=== PATIENT | female | born 1980 | race Caucasian/White ===

== ENCOUNTER 2020-05-19 09:25 | Outpatient (CLI) | payer SELFPAY ==
--- NOTE | 2020-05-19 09:35 | US_ITS ---
WS: [id number] TRANSABDOMINAL PELVIC AND TRANSVAGINAL PELVIC ULTRASOUND HISTORY: PELVIC PAIN COMPARISON: None available. Uterus: 7.4 cm x 4.2 cm x 3.5 cm. Normal size anteverted uterus. No mass. Endometrium: 0.8 cm. Normal homogeneity. No mass or increased vascularity. Right ovary: 2.1 cm x 1.8 cm x 1.6 cm. Normal size RIGHT ovary with small follicles. Normal vasculari ty. Left ovary: 2.8 cm x 1.4 cm x 3.0 cm. Normal size ovary with normal vascularity. Small complex nabothian cysts. US/US pelvic with transvaginal IMPRESSION: Essentially normal pelvic ultrasound.
== END 2020-05-19 09:26 | disposition home or self-care (01) ==
LOC: RAD 09:32
PROVIDERS: PCP Nurse Practitioner Family; Visit Provider Nurse Practitioner Family
DX: R10.2 Pelvic and perineal pain (principal)
CPT/HCPCS: 76830; 76856

== ENCOUNTER 2020-07-08 23:16 | Inpatient (IN) | payer MEDICAID, SELFPAY ==
[2020-07-08 23:24] VITALS: BP 161/112; PULSE 110; RESP 18; TEMP 36.7; O2SAT 96; BMI 34.0
--- NOTE | 2020-07-08 23:55 | ED_ITS ---
HPI - Psych General: Chief Complaint: Psychiatric Symptoms Stated Complaint: anxiety Time Seen by Provider: 07/08/20 23:31 History of Present Illness: HPI Narrative: Patient is a 39-year-old female who comes to the ED with SI. Patient's brother is with her currently and is the one who encouraged her to come to the ED to get help. Patient says she has been anxious and stressed over the past couple days. She says she has not been sleeping well and admits to having some thoughts of SI. Patient is very quiet and very slow to answer any my questions. She keeps telling me that she thinks if she gets some sleep she will be better. Patient says she has been taking citalopram for the past couple days, but that the only med she has been on. She admits to marijuana use but denies any other drug use. Brothers said that patient has made comments of threatening suicide multiple times over the past 3 days. Patient has been acting emotionally detached and he is concerned about her mental health. Today he found a handgun in patient's purse which made him even more concerned for her safety. He also says patient has been acting paranoid and saying that her boyfriend is been poisoning her. Feels that she has been saying things that do not make sense at times as well. Brother also told me that her brother committed suicide many years ago and it has had a big effect on patient. Brother is filling out a affidavit and to make sure patient goes into psych unit for evaluation to get help. Associated symptoms: Reports suicidal ideation; Deny auditory hallucinations or visual hallucinations Review of Systems Const: Denies: fever(s), chills or fatigue Eyes: Denies: change in vision or eye discomfort ENMT: Denies: throat pain, odynophagia, nasal discharge or nasal congestion Card: Denies: chest pain, palpitations, edema, swelling of feet/ankles, dyspnea on exertion or orthopnea Resp: Denies: dyspnea, productive cough or non-productive cough GI: Denies: abdominal pain, nausea, vomiting, diarrhea, constipation or hematochezia : Denies: flank pain, dysuria or hematuria Musc: Denies: neck pain, back pain or extremity swelling Skin/Breast: Denies: rash or new lesions Neuro: Denies: headache(s), numbness in extremities or weakness in extremities Psych: Reports: anxiety, sleeping less, paranoia, difficulty concentrating and suicidal ideation; Denies: visual hallucinations or auditory hallucinations Physical Exam Const: COMMON NORMALS: no acute distress, patient oriented x3 and alert GENERAL APPEARANCE: comfortable HENMT: COMMON NORMALS: normocephalic HEAD & SCALP: normocephalic MOUTH: Normal oral and palatal mucosa present THROAT: posterior oropharynx normal and uvula midline Neck/C-Spine: COMMON NORMALS: supple GENERAL: Yes normal visual inspection Resp: COMMON NORMALS: normal respiratory effort, No retractions, No use of accessory muscles and clear to auscultation bilaterally AUSCULTATION: clear to auscultation bilaterally Cardio: COMMON NORMALS: regular rate, regular rhythm, S1 normal heart sound present, S2 normal heart sound present, No gallops present (Cardio), No clicks present (Cardio), No murmurs present (Cardio) and Peripheral pulses 2+ throughout RATE: regular rate RHYTHM: regular rhythm HEART SOUNDS: S1 normal heart sound present and S2 normal heart sound present PERIPHERAL PULSES: Peripheral pulses 2+ throughout GI: COMMON NORMALS: Normal to inspection, nondistended, normoactive bowel sounds present, Soft to palpation, non-tender and no masses PALPATION: Yes Soft to palpation : COMMON NORMALS: Yes no CVA tenderness BLADDER/KIDNEY EXAM: Yes no CVA tenderness Back/Pelvis: COMMON NORMALS: no CVA tenderness Extremity: COMMON NORMALS: normal to inspection and no pedal edema Neuro: COMMON NORMALS: patient oriented x3 and moves all extremities SENSORIUM/ORIENTATION: Yes alert Psych: APPEARANCE: Yes grossly normal ATTITUDE: Yes Withdrawn affect present and Yes evasive ACTIVITY/MOTOR BEHAVIOR: Yes Avoids eye contact (attititude/behavior) SPEECH: Yes minimal, Yes slow and Yes soft MOOD & AFFECT: Yes Flat affect present THOUGHT CONTENT: Yes Suicidality present and No Hallucination(s) present ATTENTION/CONCENTRATION: Yes attention grossly intact and Yes concentration grossly intact MEMORY/COGNITION: Yes memory grossly intact and Yes cognition grossly intact INSIGHT: Limited insight present (Psych) JUDGEMENT: Limited judgement present (Psych) Skin: GENERAL SKIN EXAM: dry skin MDM - Psych MDM Narrative: Medical decision making narrative: Patient is a 39-year-old female comes to the ED with SI. Brother is with patient and is concerned about her mental health. He filled out an affidavit and patient was put on a 96-hour hold and all appropriate documentation was completed. I contacted Dr. Sandy and all about patient case and he accepted patient for admission into NPU. Lab Data: Attestation: I reviewed the patient's lab results. Labs: Lab Results 07/08/20 07/08/20 07/08/20 Range/Units 23:57 23:57 23:57 WBC 15.6 H (4.0-10.0) 10^3/ uL RBC 4.65 (4.1-5.3) 10^6/u L Hgb 15.0 (11.5-15.3) g/dL Hct 44.5 (37.0-47.0) % MCV 95.7 (81-99) fL MCH 32.3 (28.0-34.0) pg MCHC 33.7 (30.0-36.0) g/dL RDW 11.9 L (12.1-15.1) % Plt Count 379 (130-400) 10^3/c mm MPV 10.2 (7.4-10.4) fL Neut % (Auto) 68.7 % Lymph % (Auto) 23.1 % [place] % (Auto) 6.7 % Eos % (Auto) 0.9 % Baso % (Auto) 0.3 % Neut # (Auto) 10.68 H (1.8-7.7) 10^3/u L Lymph # (Auto) 3.6 (0.8-4.8) 10^3/u L [place] # (Auto) 1.0 H (0.2-0.9) 10^3/u L Eos # (Auto) 0.1 (0.0-0.8) 10^3/u L Baso # (Auto) 0.1 (0.0-0.1) 10^3/u L Nucleated RBC % (a uto) 0 % Nucleated RBCs # 0.0 /100WBC Sodium 138 (136-145) mmol/L Potassium 3.2 L (3.5-5.1) mmol/L Chloride 99 (98-107) mmol/L Carbon Dioxide 24 (22-29) mmol/L Anion Gap 18.2 (5-19) BUN 10 (6-20) mg/dL Creatinine 0.6 (0.5-0.9) mg/dL GFR Calculation 111.9 (90-130) mL/min Glucose 122 H (65-115) mg/dL Calculated Osmolal ity 286 (285-295) mOsm/k g Calcium 9.0 (8.5-10.5) mg/dL Total Bilirubin 0.2 (0.15-1.2) mg/dL AST 15 (0-32) U/L ALT 14 (0-33) U/L Alkaline Phosphata se 78 (35-105) IU/L Total Protein 7.2 (6.6-8.7) g/dL Albumin 4.3 (3.5-5.2) g/dL Globulin 2.9 (1.3-4.6) g/dL HCG, Qual Negative (Negative) Urine Color (Yellow) Urine Appearance (CLEAR) Urine pH (5-7) Ur Specific Gravit y (1.005-1.030) Urine Protein (Negative) Urine Glucose (UA) (Normal) Urine Ketones (Negative) Urine Blood (Negative) Urine Nitrate (Negative) Urine Bilirubin (Negative) Urine Urobilinogen (Negative) mg/dL Ur Leukocyte Mary Kay ase (Negative) Urine RBC (0-2) /hpf Urine WBC (0-5) /hpf Ur Squamous Epith Cells (0-5) /hpf Amorphous Sediment Urine Bacteria (NONE) /hpf Salicylates 1.0 L (3-10) mg/dL Urine Opiates Scre en (Negative) ng/mL Acetaminophen < 5.0 L (10-30) ug/mL Ur Barbiturates Sc reen (Negative) ng/mL Ur Phencyclidine S crn (Negative) ng/mL Ur Amphetamines Sc reen (Negative) ng/mL U Benzodiazepines Scrn (Negative) ng/mL Urine Cocaine Scre en (Negative) ng/mL U Marijuana (THC) Screen (Negative) ng/mL Ethyl Alcohol 11 H (0-10) mg/dL 07/09/20 07/09/20 Range/Units 00:07 00:07 WBC (4.0-10.0) 10^3/ uL RBC (4.1-5.3) 10^6/u L Hgb (11.5-15.3) g/dL Hct (37.0-47.0) % MCV (81-99) fL MCH (28.0-34.0) pg MCHC (30.0-36.0) g/dL RDW (12.1-15.1) % Plt Count (130-400) 10^3/c mm MPV (7.4-10.4) fL Neut % (Auto) % Lymph % (Auto) % [place] % (Auto) % Eos % (Auto) % Baso % (Auto) % Neut # (Auto) (1.8-7.7) 10^3/u L Lymph # (Auto) (0.8-4.8) 10^3/u L [place] # (Auto) (0.2-0.9) 10^3/u L Eos # (Auto) (0.0-0.8) 10^3/u L Baso # (Auto) (0.0-0.1) 10^3/u L Nucleated RBC % (a uto) % Nucleated RBCs # /100WBC Sodium (136-145) mmol/L Potassium (3.5-5.1) mmol/L Chloride (98-107) mmol/L Carbon Dioxide (22-29) mmol/L Anion Gap (5-19) BUN (6-20) mg/dL Creatinine (0.5-0.9) mg/dL GFR Calculation (90-130) mL/min Glucose (65-115) mg/dL Calculated Osmolal ity (285-295) mOsm/k g Calcium (8.5-10.5) mg/dL Total Bilirubin (0.15-1.2) mg/dL AST (0-32) U/L ALT (0-33) U/L Alkaline Phosphata se (35-105) IU/L Total Protein (6.6-8.7) g/dL Albumin (3.5-5.2) g/dL Globulin (1.3-4.6) g/dL HCG, Qual (Negative) Urine Color Yellow (Yellow) Urine Appearance Clear (CLEAR) Urine pH 5.0 (5-7) Ur Specific Gravit y 1.015 (1.005-1.030) Urine Protein Neg (Negative) Urine Glucose (UA) Norm (Normal) Urine Ketones 1+ H (Negative) Urine Blood 3+ H (Negative) Urine Nitrate Negative (Negative) Urine Bilirubin Neg (Negative) Urine Urobilinogen Norm (Negative) mg/dL Ur Leukocyte Mary Kay ase Negative (Negative) Urine RBC 15-25 H (0-2) /hpf Urine WBC 0-4 H (0-5) /hpf Ur Squamous Epith Cells 5-10 H (0-5) /hpf Amorphous Sediment Not Reportable Urine Bacteria Trace (NONE) /hpf Salicylates (3-10) mg/dL Urine Opiates Scre en Negative (Negative) ng/mL Acetaminophen (10-30) ug/mL Ur Barbiturates Sc reen Negative (Negative) ng/mL Ur Phencyclidine S crn Negative (Negative) ng/mL Ur Amphetamines Sc reen Negative (Negative) ng/mL U Benzodiazepines Scrn Negative (Negative) ng/mL Urine Cocaine Scre en Negative (Negative) ng/mL U Marijuana (THC) Screen Negative (Negative) ng/mL Ethyl Alcohol (0-10) mg/dL Coding Level of Care Code ED Shell Assembler for Chg Fwd Exam Comprehensive
[2020-07-09] MEDS: hyDROXYzine 25 mg Capsule 50 MG PO ×2 (00:12→21:26)
[2020-07-09 00:30] LABS: Alanine Aminotransferase 14 U/L (0-33); Albumin Level 4.3 g/dL (3.5-5.2); Alcohol Level 11 mg/dL (0-10); Alkaline Phosphatase 78 IU/L (35-105); Anion Gap 18.2 (5-19); Aspartate Amino Transferase 15 U/L (0-32); Blood Urea Nitrogen 10 mg/dL (6-20); Carbon Dioxide 24 mmol/L (22-29); Chloride 99 mmol/L (98-107); Globulin 2.9 g/dL (1.3-4.6); Glomerular Filtration Rate 111.9 mL/min (90-130); Glucose 122 mg/dL (65-115); Osmolality Calculated 286 mOsm/kg (285-295); Potassium 3.2 mmol/L (3.5-5.1); Sodium 138 mmol/L (136-145); Total Bilirubin 0.2 mg/dL (0.15-1.2); Total Protein 7.2 g/dL (6.6-8.7)
[2020-07-09 00:30] LABS: Bilirubin Urine Neg (Negative); Blood Urine 3+ (Negative); Glucose Urine UA Norm (Normal); Ketones Urine 1+ (Negative); Leukocyte Esterase Urine Negative (Negative); Nitrate Urine Negative (Negative); Protein Urine Neg (Negative); RBC Urine 15-25 /hpf (0-2); Specific Gravity, Urine 1.015 (1.005-1.030); Urine Appearance Clear (CLEAR); Urine Color Yellow (Yellow); Urobilinogen Urine Norm (Negative); WBC Urine 0-4 /hpf (0-5)
[2020-07-09 00:31] LABS: Add Urine Culture? No; Bacteria Urine TRACE /hpf
[2020-07-09 00:32] LABS: HCG, Serum Qual Negative (Negative)
[2020-07-09 00:33] LABS: Amphetamines Screen Urine Negative (Negative); Barbiturates Screen Urine Negative (Negative); Benzodiazepines Screen Urine Negative (Negative); Cocaine Screen Urine Negative (Negative); Opiate Screen Urine Negative (Negative); PCP Screen Urine Negative (Negative); THC Screen Urine Negative (Negative)
[2020-07-09 00:38] LABS: Acetaminophen < 5.0 ug/mL (10-30)
[2020-07-09 00:40] LABS: Basophils # 0.1 10^3/uL (0.0-0.1); Basophils % 0.3 %; Eosinophils # 0.1 10^3/uL (0.0-0.8); Eosinophils % 0.9 %; Hematocrit 44.5 % (37.0-47.0); Lymphocytes # 3.6 10^3/uL (0.8-4.8); Lymphocytes % 23.1 %; Mean Corpuscular HGB Conc 33.7 g/dL (30.0-36.0); Mean Corpuscular Hemoglobin 32.3 pg (28.0-34.0); Mean Corpuscular Volume 95.7 fL (81-99); Mean Platelet Volume 10.2 fL (7.4-10.4); Monocytes % 6.7 %; Neutrophils # 10.68 10^3/uL (1.8-7.7); Neutrophils % 68.7 %; Nucleated Red Blood Cells % 0 %; Platelet Count 379 10^3/cmm (130-400); Red Blood Count 4.65 10^6/uL (4.1-5.3); Red Cell Distribution Width 11.9 % (12.1-15.1); White Blood Count 15.6 10^3/uL (4.0-10.0)
[2020-07-09] MEDS: potassium chloride ER 20 mEq Tablet PO (00:52)
[2020-07-09 01:17] VITALS: BP 145/97; PULSE 96; RESP 17; TEMP 36.6; O2SAT 94
[2020-07-09 01:25] VITALS: BP 157/103; PULSE 99; O2SAT 97
[2020-07-09 06:00] VITALS: BP 148/86; PULSE 109; RESP 16; TEMP 36.5; O2SAT 93
--- NOTE | 2020-07-09 13:30 | PM.NHP ---
Providers/Chief Complaint Admitting Physician: Sena Sandy DO Chief Complaint: anxiety HPI NPU History of Present Illness Elizabeth Blair is a 39 year old female with unclear past psychiatric history although patient states that she had previously been treated for depression and anxiety presented at the insistence of her brother who reports erratic, labile mood and affect, sobbing and crying and concerned about her harming herself. Patient was placed on 96-hour hold by brother. Patient's brother reports that when he had reached for her purse that a gun and fell out. Patient has history of a sibling that had committed suicide. Patient continues to be sobbing and demonstrating erratic behavior and very difficult to redirect and interview. Patient is a difficult historian and wanders around the entire day room area going to the windows stating that she is looking for someone. Patient states that she feels paranoid and says that someone had told her that they were going after her family but does not state who. Patient does report feeling sad and depressed but unable to provide any details of duration or any other qualities of her depressed mood. She currently denies any suicidal ideation and states that she would not harm herself because of her teenage children. Patient denies any hallucinations although she continues to appear to be attending to internal stimuli throughout the interview. Patient does not participate in any other questions with regards to psychiatric review of systems. Review of Systems General: Reports: ROS unobtainable due to medical condition Meds NPU Home Medications Medication Instructions Recorded Confirmed Last Taken Type No Known Home Medications 07/09/20 07/09/20 Unknown History Allergies Allergy/AdvReac Type Severity Reaction Status Date / Time No Known Allergies Allergy Verified 07/09/20 04:24 [facility] N[facility] Other Psychiatric History: Other Psychiatric History: Unable to obtain at this time Mental Status Exam MSE Comments: Appears stated age, wearing hospital scrubs, constantly sobbing and crying throughout interview, wandering throughout the day room, some difficulty redirecting but sits for short periods of time providing brief responses to interview questions Psychomotor activity is restless per above, no agitation Speech, frequent pauses, normal volume, normal rate, not pressured I do not know what is going on, labile mood and affect Alert and oriented to person, type of place Memory and concentration are poor per interview Intellectual functioning appears to be average based on vocabulary, interview Thought process, circumstantial, no flight of ideas, no looseness of associations Thought content, perseverates about family and things going on outside of the windows, appears to be attending to internal stimuli throughout the interview, no suicidal or homicidal ideation Insight and judgment appear to be limited at this time Vitals/I&O/Wt Last Vital Signs Temp 97.7 F 07/09/20 06:00 Pulse 109 H 07/09/20 06:00 Resp 16 07/09/20 06:00 BP 148/86 07/09/20 06:00 Pulse Ox 93 07/09/20 06:00 Weight last 48 hrs Weight 81.647 kg Physical Exam Narrative: EXAM NARRATIVE: Emergency department physical examination was reviewed as part of this evaluation Data NPU : 07/08/20 23:57 07/08/20 23:57 A&P Assessment and plan (1) Psychotic disorder: Status: Acute Additional A&P Information Patient presents with erratic behavior, labile mood and affect, patient does report history of cannabis use but unclear frequency with negative UDS at time of presentation. Unclear if this represents mood disorder versus thought disorder or substance-induced psychotic disorder. Ongoing concerns about safety. INVOLUNTARY ADMIT to inpatient psychiatry Repeat CBC, CMP TSH START Zyprexa Zydis 5 mg twice daily targeting psychotic symptoms Continue to monitor Continue to provide behavioral redirection and support Involuntary Hold Information 96 Hour Hold: 96 Hour Involuntary Admission: Yes 96 Hour Hold Ending Date: 07/15/20 96 Hour Hold Ending Time: 00:42 Attestations NPU Medical Necessity Statement*: Patient requires psychiatric hospitalization for medication stabilization as well as observation for any return of suicidal ideation Anticipate hospital stay to exceed 2 midnights Time Spent in Patient Care: Greater than 35 minutes (>than 50% of time spent in counselling and/or direct pt care on unit). Coding Level of Care Code Acute Labor Representative for Milli Macdonald Diagnoses Psychotic disorder F29
[2020-07-09] MEDS: OLANZapine 5 mg ODT PO (13:31)
[2020-07-09 14:00] VITALS: BP 122/83; PULSE 116; RESP 18; TEMP 36.9; O2SAT 97
[2020-07-09 14:41] LABS: Basophils % 0.3 %; Eosinophils # 0.1 10^3/uL (0.0-0.8); Eosinophils % 1.1 %; Hemoglobin 15.2 g/dL (11.5-15.3); Lymphocytes # 2.6 10^3/uL (0.8-4.8); Lymphocytes % 22.6 %; Mean Corpuscular Volume 96.8 fL (81-99); Mean Platelet Volume 9.6 fL (7.4-10.4); Monocytes # 0.7 10^3/uL (0.2-0.9); Monocytes % 6.4 %; Neutrophils % 69.3 %; Nucleated Red Blood Cells % 0 %; Platelet Count 378 10^3/cmm (130-400); Red Blood Count 4.75 10^6/uL (4.1-5.3); Red Cell Distribution Width 11.8 % (12.1-15.1); White Blood Count 11.4 10^3/uL (4.0-10.0)
[2020-07-09] MEDS: nicotine 14 mg Patch 1 PATCH TRANSDERMA (15:06)
[2020-07-09 15:12] LABS: Alanine Aminotransferase 15 U/L (0-33); Albumin Level 4.2 g/dL (3.5-5.2); Alkaline Phosphatase 75 IU/L (35-105); Anion Gap 15.8 (5-19); Aspartate Amino Transferase 14 U/L (0-32); Blood Urea Nitrogen 8 mg/dL (6-20); Calcium 9.8 mg/dL (8.5-10.5); Carbon Dioxide 24 mmol/L (22-29); Chloride 103 mmol/L (98-107); Globulin 2.9 g/dL (1.3-4.6); Glomerular Filtration Rate 111.9 mL/min (90-130); Glucose 107 mg/dL (65-115); Osmolality Calculated 287 mOsm/kg (285-295); Potassium 3.8 mmol/L (3.5-5.1); Sodium 139 mmol/L (136-145); Thyroid Stimulating Hormone 1.12 uIU/mL (0.27-4.20); Total Bilirubin 0.3 mg/dL (0.15-1.2); Total Protein 7.1 g/dL (6.6-8.7)
--- NOTE | 2020-07-09 19:22 | P.PN_ITS ---
NPU Therapy Progress Note Therapy Progress Note Date: 07/09/20 Time In: 17:15 Time Out: 17:25 Symptoms Reported: angry, depressed Mood: agitated, confused, tearful, concerned about the safety of her family, prolonged times of blank affect Progress Note: AUTOMATIC MACHINES SUPERVISOR attempted to engage Elizabeth in conversation; however, Elizabeth presents with moderate agitation and a highly confused state. She is unable to remember speaking with [facility] staff, Su Kennedy, earlier in the day for a significant portion of time. She is concerned about the safety of her family and when AUTOMATIC MACHINES SUPERVISOR attempts to redirect, she becomes further agitated. She is calmed when asked about tangible activities, such as what she ate today and if she has everything she needs. She does not relate well and cannot at this time have a meaningful conversation. She asks about phone availability and AUTOMATIC MACHINES SUPERVISOR found this information out from the nurses and relayed to Elizabeth. She gets up to make a phone call. Intervention: JOHNNY attempted to engage; however, Elizabeth may be responding to internal stimuli and her mood is agitated. She continues to state i just need to figure this out . She appears paranoid. She is encouraged to rest but does not respond to this. She asks several times about the safety of her family, specifically her children. AUTOMATIC MACHINES SUPERVISOR did relay to her the rules of phone availability and she got up to call her mother on the phone. Reported Goals Before Discharge: None reported
[2020-07-09 21:04] VITALS: BP 131/84; PULSE 95; RESP 18; TEMP 36.5; O2SAT 96
--- NOTE | 2020-07-10 00:55 | PC.NURSE ---
PM assessment Pt denies AH/VH, Denies SI/HI, Denies pain, pt is sitting in her room with her head down staring at the floor, Pt has not moved from this position in over 45 min. Pt heart/lung sounds are WNL, v/s are normal. Pt is very confused and easily distracted. It seems that if the patient is listening to you and her eyes are looking at you she is engaged mentally. However, the moment she looks down or away, she looses concentration and can not be recovered. Simple clear instructions are necessary with this patient, she is easily overwhelmed, her response time is delayed. Pt seems less tearful this evening but is still confused and states, I can't remember things, why am I here.
--- NOTE | 2020-07-10 02:35 | PC.NURSE ---
Increased Confusion/Disorientation Pt came to the nurses station after hearing two male patients talking. She became upset, asking for her son, Manav. Pt is unsure of her children's location at this time and is concerned about where they are. Pt became tearful and went to her room. Pt asking to use the phone to call the kids at [phone]. Pt informed that phones are not in use at this time. Redirected pt, and she went back to bed.
[2020-07-10] MEDS: blistex lip oint 7 gm Tube 1 APPLIC TOPICAL (03:17)
[2020-07-10] MEDS: OLANZapine 5 mg ODT PO ×3 (03:43→22:30)
--- NOTE | 2020-07-10 04:41 | PC.NURSE ---
PRN zyprexa zydis 5mg PO given for increased anxiety. Pt is tearful, distrustful of staff, disoriented, unsure of why she is on the unit. Pt states, I am not suicidal, I don't want to hurt anyone.Can I just go? Pt is very scared that she is losing her mind, she often gets tearful, frustrated, and retreats to her room. At one point in our conversation, she acted as if she had a terrible memory return to mind, and she stated, something bad happened to me, I have PTSD, then she got quiet, fixed her gaze, and it was if she was no longer able to answer my questions. Questions seem to overwhelm this patient. Will continue to monitor the effectiveness of this PRN. pt reports intrusive thoughts and she has not slept all night.
--- NOTE | 2020-07-10 05:20 | PC.NURSE ---
Follow Up-Maximus Pt is not tearful anymore, almost asleep in her room. Pt is calm at the moment
[2020-07-10 06:00] VITALS: BP 138/81; PULSE 89; RESP 17; TEMP 36.4; O2SAT 98
[2020-07-10] MEDS: nicotine 14 mg Patch 1 PATCH TRANSDERMA (08:08)
--- NOTE | 2020-07-10 10:26 | PC.NURSE ---
PRN ZYPREXA ZYDIS 5 MG GIVEN PO PER PT C/O INCREASED ANXIETY/AGITATION. PT TEARFUL, STANDING AT THE NURSES STATION. PT HAD PREVIOUSLY DIALED 911 FROM PT PHONE. STAFF ASSISTED PT TO HELP HER CALL HER MOTHER. PT TEARFUL DURING WHOLE CONVERSATION WITH MOTHER. PT INDECISIVE ABOUT TAKING PRN MEDICATIONS, PT ASKING NURSING STAFF WHERE IS MY MEDICATION? THEN WHEN STAFF TAKES PILLS TO PT SHE REFUSES TO TAKE PRN MEDICATIONS. PRN VISTARIL OFFERED & PT REFUSED. PRN ZYPREXA ZYDIS OFFERED & PT REFUSED. STAFF ATTEMPTED TO REDIRECT PT AWAY FROM DESK, ENCOURAGED HER TO SPEAK TO PHYSICIAN ABOUT HER CONCERNS. PT CONT TO BE TEARFUL, Rebecca KAUR RN OFFERED PRN ZYPREXA ZYDIS & PT TOOK PILL AFTER MUCH STAFF ENCOURAGEMENT. WILL CONT TO MONITOR
--- NOTE | 2020-07-10 13:56 | PM.NPN ---
Subjective NPU Subjective: Interval history: Elizabeth presents today continuing to have fairly aimless behavior. Spending most of her day coming up to the nurses station and asking frivolous questions without direction or purpose. She really had no understanding of what brought her to the hospital but did seem to understand that her mind was not working the way that it should. We discussed the risk benefits and alternatives of initiating Abilify as a medication to help clear up his thought disorder and she appeared to understand and agreed to proceed as is documented in this note. Mental Status Exam MSE Comments: This is an obese white female in hospital scrubs with adequate grooming and eye contact. No abnormal movements except for mild psychomotor retardation. Cooperative with exam in mild distress. Speech was decreased rate and volume with frequent pauses due to confusion. Mood described as okay, affect confused. Thought process disorganized. Thought content: Patient denied suicidal or homicidal ideation, there were no delusions reported and no clear delusions noted but some possible paranoia exists, she denied auditory or visual hallucinations but there is some anecdotal information that might suggest some perceptual disturbances. Attention and concentration are limited and memory unreliable but none were formally tested. She is alert and oriented to person and place and seems to understand that she is here to get help for this confusion. Insight and judgment are impaired, impulse control appears fair. Vitals/I&O/Wt Last Vital Signs Temp 97.9 F 07/10/20 21:24 Pulse 109 H 07/10/20 21:24 Resp 18 07/10/20 21:24 BP 150/99 07/10/20 21:24 Pulse Ox 96 07/10/20 21:24 Data NPU : 07/09/20 14:33 07/09/20 14:33 A&P Additional A&P Information (1) Psychotic disorder: (2) Cannabis abuse: Additional A&P Information Patient presents with erratic behavior, labile mood and affect, patient does report history of cannabis use but unclear frequency with negative UDS at time of presentation. Unclear if this represents mood disorder versus thought disorder or substance-induced psychotic disorder. Ongoing concerns about safety. She endorsed an openness to a trial of Abilify. 1. Continue current medication. Start Abilify 5 mg now and 10 mg every morning. We will explore whether she can get access to the injectable version. 2. Continue every 15 minute checks for safety. 3. Encourage individual, group and milieu therapies. 4. Encourage sober living treatment after discharge at the highest level of care to which she is willing to commit. Involuntary Hold Information 96 Hour Hold: 96 Hour Involuntary Admission: Yes 96 Hour Hold Ending Date: 07/15/20 96 Hour Hold Ending Time: 00:42 Attestations NPU Medical Necessity Statement*: Inpatient hospitalization is medically necessary and the clinically appropriate intervention at this time. We will monitor medications and make changes as indicated. Likely length of stay 3 to 5 days. Coding Level of Care Code Acute Seed Analyst for Milli Macdonald
[2020-07-10 14:00] VITALS: BP 153/97; PULSE 114; RESP 18; TEMP 36.6; O2SAT 97
[2020-07-10] MEDS: ARIPiprazole 10 mg Tablet 5 MG PO (17:56)
[2020-07-10] MEDS: trazodone 50 mg Tablet PO ×2 (20:45→23:59)
[2020-07-10] MEDS: hyDROXYzine 25 mg Capsule 50 MG PO (20:45)
[2020-07-10 21:24] VITALS: BP 150/99; PULSE 109; RESP 18; TEMP 36.6; O2SAT 96
--- NOTE | 2020-07-10 21:25 | PC.NURSE ---
Behavior Tearful, burying her face in the bed, and asked to call the police or speak to security. Pt does not think anyone believes her. Paranoid and confused.
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
[2020-07-10] MEDS: nicotine 2 mg Gum BUCCAL (22:46)
--- NOTE | 2020-07-11 01:46 | PC.NURSE ---
190 Chris Patch removed
--- NOTE | 2020-07-11 02:47 | PC.NURSE ---
PM assessment Pt v/s normal, heart/lung sounds are normal. pt is still somewhat confused most of the time. She is tearful and upset. Pt is easier to redirect this evening than she has been since admission. Pt did have a moment of clarity to talk to nursing staff this evening. Pt apologized for things she has said and almost seem to be embarrassed to be here. Pt had about an hour that she kept searching for her son Manav. Pt calmed once staff informed her that her son was safe and with her brother, Mike. Pt wants to be helpful and tries to mother some of the other patients when they are at the nurses desk making various requests. Pt often thinks that staff are talking about her while they are working behind the nurses desk. However, she is more easily redirected today with the help of PRN medications. Pt did not respond to Visteril, however, Maximus Berman did help to provide a few moments of clarity tonight. Pt denies pain, Denies A/VH, but seems to think that her son is on the unit hiding
--- NOTE | 2020-07-11 05:38 | PC.NURSE ---
Behavior pt just came to the nurses station, asking questions to staff, why did you say that? I'm the one? She became upset, tearful, and she became agitated, attempted to push the door open, kept saying where is Manav, Why can't I go to where he is? Pt sat down in the floor just outside the nurses station near the exit door to lobby. Med nurse notified.
[2020-07-11] MEDS: haloperidol 5 mg Tablet PO (05:46)
[2020-07-11] MEDS: hyDROXYzine 25 mg Capsule 50 MG PO ×2 (05:46→18:49)
--- NOTE | 2020-07-11 05:49 | PC.NURSE ---
The patient came to the nurse's station apparently worried and shouting briefly. She attempted to push through a locked door. She was tearful as well. Offered the patient Haldol 5 mg po and vistaril 50 mg po. She took the meds after I explained the purpose of each.
--- NOTE | 2020-07-11 05:58 | PC.NURSE ---
Behavior Pt continues to sit in the floor, knees to chest/head down, crying. Pt has been agitated and mildly anxious most of the evening. It is escalating in severity. Pt is confused, she wants to be left alone, nursing staff will continue to monitor pt. She received medication from med nurse 5mg PO Haldol and 50mg PO Visteril. Will continue to monitor patient condition for any change.
[2020-07-11 06:00] VITALS: BP 154/93; PULSE 94; RESP 17; TEMP 36.9; O2SAT 98
--- NOTE | 2020-07-11 06:30 | PC.NURSE ---
prn fOLLOW UP PT IS IN HER ROOM, SYMPTOMS OF AGITATION ARE LESS, SHE IS TRYING TO REST AT THIS TIME.
[2020-07-11] MEDS: nicotine 14 mg Patch 1 PATCH TRANSDERMA (11:20)
[2020-07-11] MEDS: ARIPiprazole 10 mg Tablet PO (11:20)
[2020-07-11 14:00] VITALS: BP 106/75; PULSE 117; RESP 20; TEMP 36.6; O2SAT 94
--- NOTE | 2020-07-11 14:24 | PM.NPN ---
Subjective NPU Subjective: Interval history: Elizabeth presented today continuing to be very disorganized and confused about what is going on. She was tearful about what medication she was taking and worrying that the medication was making her confused. We discussed the fact that she was confused and having thought disorder when she presented. Conversation with family revealed that there was likely significant genetic loading for psychotic disorder with her brother possibly having a first break when he was 18 and then committing suicide in the week that presented. We agreed to stay the course and allow the Abilify to get in her system and see if we do not get improvement. Mental Status Exam MSE Comments: This is an obese white female in hospital scrubs with adequate grooming and eye contact. No abnormal movements except for mild psychomotor retardation. Cooperative with exam in mild to moderate distress. Speech was decreased rate and volume with frequent pauses due to confusion. Mood described as confused, affect congruent. Thought process disorganized. Thought content: Patient denied suicidal or homicidal ideation, there were no delusions reported and no clear delusions noted but some possible paranoia exists, she denied auditory or visual hallucinations but there is some anecdotal information that might suggest some perceptual disturbances. Attention and concentration are limited and memory unreliable but none were formally tested. She is alert and oriented to person and place and seems to understand that she is here to get help for this confusion. Insight and judgment are impaired, impulse control appears fair. Vitals/I&O/Wt Last Vital Signs Temp 97.5 F L 07/11/20 21:05 Pulse 95 07/11/20 21:05 Resp 17 07/11/20 21:05 BP 122/72 07/11/20 21:05 Pulse Ox 97 07/11/20 21:05 Data NPU : 07/09/20 14:33 07/09/20 14:33 A&P Additional A&P Information (1) Psychotic disorder: (2) Cannabis abuse: Additional A&P Information Patient presents with erratic behavior, labile mood and affect, patient does report history of cannabis use but unclear frequency with negative UDS at time of presentation. Unclear if this represents mood disorder versus thought disorder or substance-induced psychotic disorder. Ongoing concerns about safety. She endorsed an openness to a trial of Abilify. 1. Continue current medication. We will explore whether she can get access to the injectable version of Abilify down the road with insurance qualification.. 2. Continue every 15 minute checks for safety. 3. Encourage individual, group and milieu therapies. 4. Encourage sober living treatment after discharge at the highest level of care to which she is willing to commit. Involuntary Hold Information 96 Hour Hold: 96 Hour Involuntary Admission: Yes 96 Hour Hold Ending Date: 07/15/20 96 Hour Hold Ending Time: 00:42 Attestations NPU Medical Necessity Statement*: Inpatient hospitalization is medically necessary and the clinically appropriate intervention at this time. We will monitor medications and make changes as indicated. Likely length of stay 4 to 6 days. Will likely need to file a 21-day hold at the beginning of the week. Coding Level of Care Code Acute Loading Rack Supervisor for Milli Macdonald
--- NOTE | 2020-07-11 16:10 | PC.NURSE ---
Agitation: Patient is emotional and crying. She refused to take the Ativan IM and refused the Haldol PO. She is resting in her bed at this time and is pacing to the phone and back to her room. She is requesting to speak with Nuno and/or Dr. Baxter. I notified both and will continue to monitor patient closely. ZACKARY, LEXA
[2020-07-11 21:05] VITALS: BP 122/72; PULSE 95; RESP 17; TEMP 36.4; O2SAT 97
[2020-07-12 06:00] VITALS: BP 123/78; PULSE 98; RESP 16; TEMP 36.3; O2SAT 96
[2020-07-12] MEDS: ARIPiprazole 10 mg Tablet PO (08:30)
[2020-07-12] MEDS: nicotine 14 mg Patch 1 PATCH TRANSDERMA (08:30)
[2020-07-12 14:00] VITALS: BP 114/70; PULSE 79; RESP 17; TEMP 36.6; O2SAT 95
[2020-07-12] MEDS: nicotine 2 mg Gum BUCCAL (17:03)
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
[2020-07-12 22:00] VITALS: BP 115/73; PULSE 87; RESP 17; TEMP 37; O2SAT 93
[2020-07-13 06:00] VITALS: BP 104/64; PULSE 76; RESP 16; TEMP 36.6; O2SAT 95
[2020-07-13] MEDS: nicotine 14 mg Patch 1 PATCH TRANSDERMA (09:10)
[2020-07-13] MEDS: ARIPiprazole 10 mg Tablet PO (09:10)
[2020-07-13 14:00] VITALS: BP 110/78; PULSE 84; RESP 17; TEMP 37; O2SAT 96
[2020-07-13] MEDS: acetaminophen 325 mg Tablet 650 MG PO (16:13)
--- NOTE | 2020-07-13 19:31 | P.PN_ITS ---
Subjective NPU Subjective: Interval history: Elizabeth she continues to present confused and distraught in her sessions. She continues to endorse confusion about why she is here. She continues to have irritable moments during the conversation. Continues to seem very distracted by any sounds no matter how slight outside of the room. We discussed the possibility of her needing to stay longer but she continued to be confused about the subject matter. We discussed increasing the medication/Abilify but having some concerns about her limited response and the possible need to augment or switch to a different medication. Mental Status Exam MSE Comments: This is a short obese white female in hospital scrubs with adequate grooming and eye contact. No abnormal movements except for mild psychomotor retardation. Cooperative with exam in mild to moderate distress. Speech was decreased rate and volume with frequent pauses due to confusion. Mood described as confused, affect congruent and labile with periods of very impassioned crying. Thought process disorganized. Thought content: Patient denied suicidal or homicidal ideation, there were no delusions reported and no clear delusions noted but some possible paranoia exists, she denied auditory or visual hallucinations but there is some anecdotal information that might suggest some perceptual disturbances and she appears hypervigilant to noises and very distractible. Attention and concentration are improving but impaired and memory is unreliable but none were formally tested. She is alert and oriented to person and place and seems to understand that she is here to get help for this confusion. Insight and judgment are impaired, impulse control appears fair. Vitals/I&O/Wt Last Vital Signs Temp 98.6 F 07/13/20 14:00 Pulse 84 07/13/20 14:00 Resp 17 07/13/20 14:00 BP 110/78 07/13/20 14:00 Pulse Ox 96 07/13/20 14:00 Weight last 48 hrs Weight 81.647 kg Data NPU : 07/09/20 14:33 07/09/20 14:33 A&P Additional A&P Information (1) Psychotic disorder: (2) Cannabis abuse: Additional A&P Information Patient presents with erratic behavior, labile mood and affect, patient does report history of cannabis use but unclear frequency with negative UDS at time of presentation. Unclear if this represents mood disorder versus thought disorder or substance-induced psychotic disorder. Ongoing concerns about safety. She endorsed an openness to a trial of Abilify. 1. Continue current medication. Increase Abilify to 15 mg p.o. every morning before considering a change. 2. Continue every 15 minute checks for safety. 3. Encourage individual, group and milieu therapies. 4. Encourage sober living treatment after discharge at the highest level of care to which she is willing to commit. 5. We will file 21-day hold paperwork. Involuntary Hold Information 96 Hour Hold: 96 Hour Involuntary Admission: Yes 96 Hour Hold Ending Date: 07/15/20 96 Hour Hold Ending Time: 00:42 Attestations NPU Medical Necessity Statement*: Inpatient hospitalization is medically necessary and the clinically appropriate intervention at this time. We will monitor medications and make changes as indicated. Likely length of stay 7-10 days. Will need to file a 21-day hold tomorrow. Coding Level of Care Code Acute Assistant Professor Of Physics for Milli Macdonald
[2020-07-13 19:56] VITALS: BP 105/63; PULSE 79; RESP 18; TEMP 37.1; O2SAT 96
[2020-07-13] MEDS: nicotine 2 mg Gum BUCCAL (20:04)
[2020-07-13] MEDS: ARIPiprazole 10 mg Tablet 5 MG PO (20:50)
[2020-07-13] MEDS: hyDROXYzine 25 mg Capsule 50 MG PO (20:51)
[2020-07-13] MEDS: trazodone 50 mg Tablet PO (20:51)
[2020-07-14 06:00] VITALS: BP 105/67; PULSE 88; RESP 18; TEMP 36.7; O2SAT 96
[2020-07-14] MEDS: nicotine 2 mg Gum BUCCAL ×3 (08:03→17:55)
[2020-07-14] MEDS: ARIPiprazole 30 mg Tablet 15 MG PO (08:03)
[2020-07-14 14:00] VITALS: BP 122/77; PULSE 82; RESP 18; TEMP 36.9; O2SAT 96
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
[2020-07-14] MEDS: OLANZapine 5 mg ODT PO (18:14)
[2020-07-14] MEDS: trazodone 50 mg Tablet PO (20:16)
[2020-07-14] MEDS: hyDROXYzine 25 mg Capsule 50 MG PO (20:17)
[2020-07-14 20:18] VITALS: BP 144/80; PULSE 82; RESP 16; TEMP 36.6; O2SAT 97
[2020-07-15 06:00] VITALS: BP 109/69; PULSE 80; RESP 18; TEMP 36; O2SAT 96
[2020-07-15] MEDS: nicotine 14 mg Patch 1 PATCH TRANSDERMA (08:02)
[2020-07-15] MEDS: ARIPiprazole 30 mg Tablet 15 MG PO (08:02)
[2020-07-15 14:00] VITALS: BP 111/67; PULSE 97; RESP 20; TEMP 36.3; O2SAT 98
--- NOTE | 2020-07-15 18:55 | PC.NURSE ---
Nicotine patch fell off patient at 1500 and returned to myself by JAVI, JUDIE. Derejew, UMBRELLA REPAIRER
--- NOTE | 2020-07-15 18:57 | P.PN_ITS ---
Subjective NPU Subjective: Interval history: Elizabeth presents today continuing to have more clarity in general but still getting her bearings. We discussed not having the 21-day hearing after talking with her brother and agreeing that with a couple more days they would feel comfortable having her home and assisting her in the remainder of her convalescence. She agreed to sign in voluntarily to the hospital for the remainder of her stay. We will continue to monitor and possibly consider the injection but that it be for a later date given her insurance circumstance. Mental Status Exam MSE Comments: This is a short obese white female in hospital scrubs with adequate grooming and eye contact. No abnormal movements except for mild psychomotor retardation. Cooperative with exam in mild distress. Speech was more normal rate and volume, but still decreased overall. Mood described as a little better, affect congruent, but still subdued. Thought process organized. Thought content: Patient denied suicidal or homicidal ideation, there were no delusions reported, but paranoia exists, she denied auditory or visual hallucinations and she appears less hypervigilant to noises and very distract ible. Attention and concentration are intact but and memory is reliable but none were formally tested. She is alert and oriented x3. Insight and judgment are improving, impulse control appears fair. Vitals/I&O/Wt Last Vital Signs Temp 97.3 F L 07/15/20 14:00 Pulse 97 07/15/20 14:00 Resp 20 H 07/15/20 14:00 BP 111/67 07/15/20 14:00 Pulse Ox 98 07/15/20 14:00 Data NPU : 07/09/20 14:33 07/09/20 14:33 A&P Additional A&P Information (1) PTSD (post-traumatic stress disorder): Additional A&P Information (1) Psychotic disorder: (2) Cannabis abuse: Additional A&P Information Patient presents with erratic behavior, labile mood and affect, patient does report history of cannabis use but unclear frequency with negative UDS at time of presentation. Recent revelation suggest that this is a psychotic break which was likely preceded by new onset PTSD 1. Continue current medication. 2. Continue every 15 minute checks for safety. 3. Encourage individual, group and milieu therapies. 4. Encourage sober living treatment after discharge at the highest level of care to which she is willing to commit. 5. We will rescind the 21-day hold and she will sign in. Involuntary Hold Information 96 Hour Hold: 96 Hour Involuntary Admission: Yes 96 Hour Hold Ending Date: 07/15/20 96 Hour Hold Ending Time: 00:42 Attestations NPU Medical Necessity Statement*: Inpatient hospitalization is medically necessary and the clinically appropriate intervention at this time. We will monitor medications and make changes as indicated. Likely length of stay 1-4 days. Coding Level of Care Code Acute Framework Developer for Milli Macdonald
[2020-07-15] MEDS: nicotine 2 mg Gum BUCCAL (19:06)
[2020-07-15 19:39] VITALS: BP 124/81; PULSE 79; RESP 16; TEMP 36.2; O2SAT 97
[2020-07-15] MEDS: hyDROXYzine 25 mg Capsule 50 MG PO (20:04)
[2020-07-15] MEDS: trazodone 50 mg Tablet PO (20:06)
[2020-07-16 06:00] VITALS: BP 94/57; PULSE 76; RESP 15; TEMP 36.8; O2SAT 96
[2020-07-16] MEDS: ARIPiprazole 30 mg Tablet 15 MG PO (08:26)
[2020-07-16] MEDS: nicotine 14 mg Patch 1 PATCH TRANSDERMA (08:27)
--- NOTE | 2020-07-16 13:44 | P.PN_ITS ---
Subjective NPU Subjective: Interval history: Elizabeth presents today reporting that she is open to signing herself in and continuing treatment on a voluntary basis. We discussed the plan to make sure she continues to improve and her clarity and have a resolution of the psychosis. We discussed the tentative plan for Tuesday morning discharge as well as continuing the current medication and connecting her to a therapist at [facility]. Her brother feels like she is improving and feels comfortable that he will be able to help her manage things once she is discharged. She continues to have some follow-up but has shown continued improvement since the increase in Abilify to 15 mg every morning. Mental Status Exam MSE Comments: This is a short obese white female in hospital scrubs with adequate grooming and eye contact. No abnormal movements except for mild psychomotor retardation. Cooperative with exam in no acute distress. Speech was more normal rate and volume, but still decreased overall. Mood described as better, affect congruent, but still subdued. Thought process organized. Thought content: Patient denied suicidal or homicidal ideation, there were no delusions reported, but paranoia exists, she denied auditory or visual hallucinations and she appears less hypervigilant to noises and less distractible. Attention and concentration are intact and memory is reliable but none were formally tested. She is alert and oriented x3. Insight and judgment are improving, impulse control appears fair. Vitals/I&O/Wt Last Vital Signs Temp 96.8 F L 07/16/20 13:51 Pulse 88 07/16/20 13:51 Resp 18 07/16/20 13:51 BP 115/76 07/16/20 13:51 Pulse Ox 97 07/16/20 13:51 Data NPU : 07/09/20 14:33 07/09/20 14:33 A&P Additional A&P Information (1) PTSD (post-traumatic stress disorder): Additional A&P Information (1) Psychotic disorder: (2) Cannabis abuse: Additional A&P Information Patient presents with erratic behavior, labile mood and affect, patient does report history of cannabis use but unclear frequency with negative UDS at time of presentation. Recent revelation suggest that this is a psychotic break which was likely preceded by new onset PTSD 1. Continue current medication. 2. Continue every 15 minute checks for safety. 3. Encourage individual, group and milieu therapies. 4. Encourage sober living treatment after discharge at the highest level of care to which she is willing to commit. 5. Patient currently on a voluntary commitment. Involuntary Hold Information 96 Hour Hold: 96 Hour Involuntary Admission: Yes 96 Hour Hold Ending Date: 07/15/20 96 Hour Hold Ending Time: 00:42 Attestations NPU Medical Necessity Statement*: Inpatient hospitalization is medically necessary and the clinically appropriate intervention at this time. We will monitor medications and make changes as indicated. Likely length of stay 1-3 days. Coding Level of Care Code Acute Floor Renovator for Milli Macdonald
[2020-07-16 13:51] VITALS: BP 115/76; PULSE 88; RESP 18; TEMP 36; O2SAT 97
[2020-07-16] MEDS: acetaminophen 325 mg Tablet 650 MG PO (18:45)
--- NOTE | 2020-07-16 19:20 | PM.NPTHER ---
NPU Therapy Progress Note Therapy Progress Note Date: 07/16/20 Time In: 18:00 Time Out: 18:40 Symptoms Reported: flashbacks, nightmares, depression, anxiety Mood: positive, somewhat overwhelmed Progress Note: Elizabeth presents with vast improvement since our last visit. She is observed to be coherent and communicates effectively during our meeting. She is somewhat overwhelmed but speaks with insight into what led up to her mental break. Her delusions and paranoia have seemed to subsided. She has met with Su Kennedy, [facility] emergency caseworker protective services, and discussed process of therapy treatment upon her discharge from the NPU. She has follow up questions for this ORTHODONTIC BAND MAKER. She shares some about her trauma history and difficult emotions she is attempting to process related to this. Intervention: ORTHODONTIC BAND MAKER educated on PTSD diagnosis, symptoms, and treatment options. EMDR therapy option was briefly mentioned and discussed. ORTHODONTIC BAND MAKER normalized trauma reactions, emotions, guilt, and shame surrounding her trauma. Usual expectations and fears of the therapy process were discussed. ORTHODONTIC BAND MAKER briefly educated on positive coping skills and to begin practicing challenging her negative self talk. Reported Goals Before Discharge: Apt. for initial assessment at [facility] to begin services
[2020-07-16 20:22] VITALS: BP 113/69; PULSE 84; RESP 18; TEMP 36.7; O2SAT 93
[2020-07-16] MEDS: trazodone 50 mg Tablet PO (20:35)
[2020-07-16] MEDS: hyDROXYzine 25 mg Capsule 50 MG PO (20:35)
[2020-07-16] MEDS: nicotine 2 mg Gum BUCCAL (20:37)
[2020-07-17 06:00] VITALS: BP 105/67; PULSE 88; RESP 18; TEMP 36.8; O2SAT 97
[2020-07-17] MEDS: nicotine 14 mg Patch 1 PATCH TRANSDERMA (08:01)
[2020-07-17] MEDS: ARIPiprazole 30 mg Tablet 15 MG PO (08:01)
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
[2020-07-17 12:54] VITALS: BP 105/67; PULSE 88; RESP 18; TEMP 36.8; O2SAT 97
== END 2020-07-17 13:52 | disposition home or self-care (01) | DRG 885 ==
LOC: ER 23:31 → NP 07-09 00:57
PROVIDERS: Admitting Provider Psychiatry & Neurology Psychiatry; Emergency Provider Physician Assistant; Visit Provider Psychiatry & Neurology Psychiatry
DX: F29 Unspecified psychosis not due to a substance or known physiological condition (principal); F32.9 Major depressive disorder, single episode, unspecified; F41.9 Anxiety disorder, unspecified; F12.10 Cannabis abuse, uncomplicated; F43.10 Post-traumatic stress disorder, unspecified; Z81.8 Family history of other mental and behavioral disorders
CPT/HCPCS: 12345; 36415; 80053; 80306; 80307; 81001; 84443; 84703; 85025; 99284

== ENCOUNTER → 2020-10-06 08:44 | Outpatient (BNVA) | payer MEDICAID, SELFPAY | PROVIDERS: PCP Nurse Practitioner Family; Visit Provider Psychiatry & Neurology Psychiatry | DX: F32.9 Major depressive disorder, single episode, unspecified (principal); F43.10 Post-traumatic stress disorder, unspecified | CPT/HCPCS: 90792 ==

== ENCOUNTER → 2021-01-13 10:56 | Outpatient (BNVA) | payer MEDICAID, SELFPAY | PROVIDERS: PCP Nurse Practitioner Family; Visit Provider Social Worker | DX: F43.12 Post-traumatic stress disorder, chronic (principal); F32.9 Major depressive disorder, single episode, unspecified | CPT/HCPCS: 90834 ==

== ENCOUNTER → 2021-01-22 13:25 | Outpatient (BNVA) | payer MEDICAID, SELFPAY | PROVIDERS: PCP Nurse Practitioner Family; Visit Provider Psychiatry & Neurology Psychiatry | DX: F32.9 Major depressive disorder, single episode, unspecified (principal); F43.10 Post-traumatic stress disorder, unspecified | CPT/HCPCS: 99214 ==

== ENCOUNTER → 2021-02-05 12:02 | Outpatient (BNVA) | payer MEDICAID, SELFPAY | PROVIDERS: PCP Nurse Practitioner Family; Visit Provider Social Worker | DX: F43.12 Post-traumatic stress disorder, chronic (principal); F33.1 Major depressive disorder, recurrent, moderate | CPT/HCPCS: 90834 ==

== ENCOUNTER → 2023-02-23 11:19 | Outpatient (BNVA) | payer MEDICAID, SELFPAY | PROVIDERS: PCP Nurse Practitioner Family; Visit Provider Nurse Practitioner Family | DX: J32.0 Chronic maxillary sinusitis (principal); M79.645 Pain in left finger(s) | CPT/HCPCS: 87486; 87581; 87633 ==

== ENCOUNTER 2023-04-07 20:54 | Inpatient (IN) | payer MEDICAID, SELFPAY ==
[2023-04-07 20:59] VITALS: BP 154/80; PULSE 111; RESP 16; TEMP 36.8; O2SAT 96; BMI 20.7
--- NOTE | 2023-04-07 21:24 | W.ED.PSYCHS ---
HPI - Psych General: Chief Complaint: Psychiatric Symptoms Stated Complaint: SI Time Seen by Provider: 04/07/23 21:09 History of Present Illness: Patient presents to the ER with suicidal ideation. Patient has a plan but she will not speak of it. Patient reports auditory and visual hallucinations. Patient not currently taking any medicine. She should be on Abilify and Celexa. Review of Systems General: Reports: 10 or more systems reviewed and unremarkable except in HPI and below PFSH ED PFSH: Medical History MDD (major depressive disorder), single episode, severe with psychotic features Psychiatric care Physical Exam Const: COMMON NORMALS: no acute distress, average body habitus, patient oriented x3, no limitations, healthy appearing, alert and well nourished HENMT: COMMON NORMALS: normocephalic, atraumatic, hearing grossly normal bilaterally, external ears normal, Normal external nose present, moist oral mucous membranes and oropharynx normal HEAD & SCALP: normocephalic and atraumatic NOSE: Normal external nose present EXTERNAL EAR: Yes external ears normal Neck/C-Spine: COMMON NORMALS: no JVD Chest: COMMONS NORMALS: normal inspection of the chest and normal palpation of entire chest wall Resp: COMMON NORMALS: normal respiratory effort, No retractions, No use of accessory muscles and clear to auscultation bilaterally AUSCULTATION: clear to auscultation bilaterally Cardio: COMMON NORMALS: no JVD, regular rate, regular rhythm, S1 normal heart sound present, S2 normal heart sound present, No gallops present (Cardio), No clicks present (Cardio), No murmurs present (Cardio) and No rub (Cardio) RATE: regular rate RHYTHM: regular rhythm HEART SOUNDS: S1 normal heart sound present and S2 normal heart sound present GI: COMMON NORMALS: Normal to inspection, nondistended, normoactive bowel sounds present, Soft to palpation, non-tender, No hepatosplenomegaly present and no masses PALPATION: Yes Soft to palpation and Yes No hepatosplenomegaly present : COMMON NORMALS: Yes no CVA tenderness BLADDER/KIDNEY EXAM: Yes no CVA tenderness Back/Pelvis: COMMON NORMALS: no CVA tenderness Neuro: COMMON NORMALS: patient oriented x3 SENSORIUM/ORIENTATION: Yes alert Course Vital Signs: Vital signs: Vital Signs Temperature 98.3 F 04/07/23 20:59 Pulse Rate 111 H 04/07/23 20:59 Respiratory Rate 16 04/07/23 20:59 Blood Pressure 154/80 04/07/23 20:59 Pulse Oximetry 96 04/07/23 20:59 MDM - Psych Medical Decision Making Patient presents to the ER with suicidal ideation. Patient was worked up in normal psychiatric fashion. Once cleared medically patient anticipated will be admitted to MPU for further evaluation and treatment. Consulted Dr. Baxter who accepted inpatient treatment for further evaluation and treatment. Differential Diagnosis Likely acute psychosis and suicidal ideation; Unlikely chronic schizophrenia, bipolar disorder, depression, drug-induced psychotic disorder or acute anxiety Medical Records I reviewed the patient's medical records. Lab Data I reviewed the patient's lab results. 04/07/23 21:04/07/23: Laboratory Results WBC 12.45 10^3/uL (3.29-11.43) H 04/07/23: RBC 4.37 10^6/uL (3.85-5.65) 04/07/23: Hgb 14.40 g/dL (11.27-16.99) 04/07/23: Hct 42.1 % (36-47) 04/07/23: MCV 96.3 fl (85-98) 04/07/23: MCH 33.0 pg (27-33) 04/07/23: MCHC 34.2 g/dL (30-55) 04/07/23: RDW 11.6 % (12.1-15.1) L 04/07/23: Plt Count 310 10^3/cmm (157-399) 04/07/23: MPV 9.3 fL (7.4-10.4) 04/07/23: Neut % (Auto) 64.8 % 04/07/23: Lymph % (Auto) 27.8 % 04/07/23: [place] % (Auto) 5.5 % 04/07/23: Eos % (Auto) 1.3 % 04/07/23: Baso % (Auto) 0.3 % 04/07/23: Neut # (Auto) 8.06 10^3/uL (1.8-7.7) H 04/07/23 21: Lymph # (Auto) 3.5 10^3/uL (0.8-4.8) 04/07/23 21: [place] # (Auto) 0.7 10^3/uL (0.2-0.9) 04/07/23 21: Eos # (Auto) 0.2 10^3/uL (0.0-0.8) 04/07/23 21: Baso # (Auto) 0.0 10^3/uL (0.0-0.1) 04/07/23 21: Nucleated RBC % (auto) 0 % 04/07/23 21: Nucleated RBCs # 0.0 /100WBC 04/07/23 21: Sodium 136 mmol/L (136-145) 04/07/23 21: Potassium 3.7 mmol/L (3.5-5.1) 04/07/23 21: Chloride 104 mmol/L (98-107) 04/07/23 21: Carbon Dioxide 22 mmol/L (22-29) 04/07/23 21: Anion Gap 13.7 (5-19) 04/07/23 21: BUN 6 mg/dL (6-20) 04/07/23 21: Creatinine 0.5 mg/dL (0.5-0.9) 04/07/23 21: GFR Calculation 136.0 mL/min (90-130) H 04/07/23 21: Glucose 140 mg/dL (65-115) H 04/07/23 21: Calculated Osmolality 282 mOsm/kg (285-295) L 04/07/23 21: Calcium 9.2 mg/dL (8.5-10.5) 04/07/23: Total Bilirubin 0.4 mg/dL (0.15-1.2) 04/07/23 21: AST 13 U/L (0-32) 04/07/23 21: ALT 9 U/L (0-33) 04/07/23 21: Alkaline Phosphatase 64 U/L (35-105) 04/07/23 21: Total Protein 6.9 g/dL (6.6-8.7) 04/07/23 21: Albumin 4.6 g/dL (3.5-5.2) 04/07/23 21: Globulin 2.3 g/dL (1.3-4.6) 04/07/23 21: HCG, Qual Negative (Negative) 04/07/23 21:55 Urine Color Yellow (Yellow) 04/07/23 21:55 Urine Appearance Clear (CLEAR) 04/07/23 21:55 Urine pH 5 (5-7) 04/07/23 21:55 Ur Specific [place] 1.010 (1.005-1.030) 04/07/23 21:55 Urine Protein Neg (Negative) 04/07/23 21:55 Urine Glucose (UA) Norm (Normal) 04/07/23 21:55 Urine Ketones 1+ (Negative) H 04/07/23 21: Urine Blood 2+ (Negative) H 04/07/23 21:55 Urine Nitrate Negative (Negative) 04/07/23 21: Urine Bilirubin Neg (Negative) 04/07/23 21: Urine Urobilinogen Neg mg/dL (Negative) 04/07/23 21:55 Ur Leukocyte Esterase Negative (Negative) 04/07/23 21:55 Urine RBC 0-4 /hpf (0-2) H 04/07/23 21:55 Urine WBC None /hpf (0-5) 04/07/23 21:55 Ur Squamous Epith Cells 5-10 /hpf (0-5) H 04/07/23 21:55 Amorphous Sediment Not Reportable 04/07/23 21: Urine Bacteria Trace /hpf (NONE) 04/07/23 21:55 Urine Mucus 1+ /hpf 04/07/23 21:55 Salicylates < 0.3 mg/dL (3-10) L 04/07/23 21:26 Urine Opiates Screen Negative ng/mL (Negative) 04/07/23 21:55 Acetaminophen < 5.0 ug/mL (10-30) L 04/07/23 21: Ur Barbiturates Screen Negative ng/mL (Negative) 04/07/23 21:55 Ur Phencyclidine Scrn Negative ng/mL (Negative) 04/07/23 21:55 Ur Amphetamines Screen Negative ng/mL (Negative) 04/07/23 21:55 U Benzodiazepines Scrn Negative ng/mL (Negative) 04/07/23 21:55 Urine Cocaine Screen Negative ng/mL (Negative) 04/07/23 21:55 U Marijuana (THC) Screen Negative ng/mL (Negative) 04/07/23 21:55 Ethyl Alcohol < 10 mg/dL (0-10) 04/07/23 21:26 No radiology studies performed this visit Discharge Plan Discharge Patient Disposition: Admitted As Inpatient Clinical Impression: Acute psychosis, Suicidal ideation Condition: Stable Coding Level of Care Code ED Opticianry Teacher for Milli Macdonald
[2023-04-07 21:33] LABS: Basophils % 0.3 %; Eosinophils # 0.2 10^3/uL (0.0-0.8); Eosinophils % 1.3 %; Hematocrit 42.1 % (36-47); Lymphocytes # 3.5 10^3/uL (0.8-4.8); Lymphocytes % 27.8 %; Mean Corpuscular HGB Conc 34.2 g/dL (30-55); Mean Corpuscular Volume 96.3 fl (85-98); Mean Platelet Volume 9.3 fL (7.4-10.4); Monocytes # 0.7 10^3/uL (0.2-0.9); Monocytes % 5.5 %; Neutrophils # 8.06 10^3/uL (1.8-7.7); Neutrophils % 64.8 %; Nucleated Red Blood Cells % 0 %; Platelet Count 310 10^3/cmm (157-399); Red Blood Count 4.37 10^6/uL (3.85-5.65); Red Cell Distribution Width 11.6 % (12.1-15.1); White Blood Count 12.45 10^3/uL (3.29-11.43)
[2023-04-07 21:49] LABS: Alanine Aminotransferase 9 U/L (0-33); Albumin Level 4.6 g/dL (3.5-5.2); Alkaline Phosphatase 64 U/L (35-105); Aspartate Amino Transferase 13 U/L (0-32); Blood Urea Nitrogen 6 mg/dL (6-20); Calcium 9.2 mg/dL (8.5-10.5); Carbon Dioxide 22 mmol/L (22-29); Chloride 104 mmol/L (98-107); Globulin 2.3 g/dL (1.3-4.6); Glucose 140 mg/dL (65-115); Osmolality Calculated 282 mOsm/kg (285-295); Sodium 136 mmol/L (136-145); Total Bilirubin 0.4 mg/dL (0.15-1.2); Total Protein 6.9 g/dL (6.6-8.7)
[2023-04-07 21:50] LABS: Acetaminophen < 5.0 ug/mL (10-30); Alcohol Level < 10 mg/dL (0-10); Salicylate < 0.3 mg/dL (3-10)
[2023-04-07 21:51] LABS: Anion Gap 13.7 (5-19); Potassium 3.7 mmol/L (3.5-5.1)
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
[2023-04-07 22:12] LABS: Amphetamines Screen Urine Negative (Negative); Barbiturates Screen Urine Negative (Negative); Benzodiazepines Screen Urine Negative (Negative); Cocaine Screen Urine Negative (Negative); Opiate Screen Urine Negative (Negative); PCP Screen Urine Negative (Negative); THC Screen Urine Negative (Negative)
[2023-04-07 22:14] LABS: HCG Qualitative Urine. Negative (Negative)
[2023-04-07 22:18] LABS: Add Urine Microscopic? YES; Bacteria Urine TRACE /hpf; Bilirubin Urine Neg (Negative); Blood Urine 2+ (Negative); Glucose Urine UA Norm (Normal); Ketones Urine 1+ (Negative); Leukocyte Esterase Urine Negative (Negative); Mucus Urine 1+ /hpf; Nitrate Urine Negative (Negative); Protein Urine Neg (Negative); RBC Urine 0-4 /hpf (0-2); Urine Appearance Clear (CLEAR); Urine Color Yellow (Yellow); Urobilinogen Urine Neg (Negative); pH Urine 5 (5-7)
[2023-04-07 22:19] LABS: Add Urine Culture? No
--- NOTE | 2023-04-07 22:50 | PC.NURSE ---
96 Hour Involuntary Hold Rights have been read to patient and a copy of the same has been given to her. Associate Programmer, Carlton Liu, was present at bedside at the time of presentation.
[2023-04-07 23:04] VITALS: BP 129/86; PULSE 104; RESP 18; TEMP 36.8; O2SAT 97
[2023-04-07] MEDS: OLANZapine 5 mg ODT PO (23:28)
[2023-04-08 06:00] VITALS: RESP 16
[2023-04-08] MEDS: OLANZapine 5 mg ODT PO ×3 (07:21→18:57)
--- NOTE | 2023-04-08 10:48 | PC.NURSE ---
patient crying. patient with staff. patient agreed to take Zyprexa 5mg ODT. Patient now sitting on edge of bed. Will continue to monitor patient closely.
--- NOTE | 2023-04-08 11:39 | PC.NURSE ---
Patient's called. With permission from patient, Giorgi stated that for the last couple of days, patient has been paranoid and tearful. Patient has been saying that she is trying to connect the dots about her past . Patient feels like somebody is hijaking her brain . Patient was very close with her brother who committed suicide when he was 18; patient was 16 at the time. A couple of days ago was her brother's birthday. Since then, patient has been paranoid and confused, asking such things as, is my brother really ? also reports that patient says that she doesn't always know what is going on in her head and that she cannot excape what is in her head, that she is always looking for an answer.
[2023-04-08 14:00] VITALS: BP 121/59; PULSE 101; RESP 16; TEMP 36.8; O2SAT 98
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
--- NOTE | 2023-04-08 15:46 | PC.OT ---
Attempted OT evaluation on 04/08/2023 two times. Will attempt again at later time.
[2023-04-08] MEDS: ARIPiprazole 10 mg Tablet PO (18:28)
[2023-04-08 19:49] VITALS: BP 110/71; PULSE 78; RESP 18; TEMP 36.8; O2SAT 95
[2023-04-08] MEDS: trazodone 50 mg Tablet PO (21:03)
[2023-04-08] MEDS: hyDROXYzine 25 mg Capsule 50 MG PO (21:03)
[2023-04-09 06:00] VITALS: RESP 16
[2023-04-09] MEDS: ARIPiprazole 10 mg Tablet PO (08:18)
--- NOTE | 2023-04-09 08:28 | PC.NURSE ---
PT IS TEARFUL DURING ASSESSMENT. PT DENIES SI/HI/AH/VH. PT STATED TO THIS NURSE WHAT IS WRONG, WHAT IS HAPPENING. THIS NURSE SAT WITH PT AND EXPLAINED THAT SHE IS HERE TO GET BETTER. PT ASKED IF SHE WILL GET TO SEE THE DOCTOR THIS NURSE INFORMED HER THAT HE WILL SEE HER TODAY AND HE SEES EVERYBODY EVERYDAY. PT WAS COOPERATIVE WITH ASSESSMENT. PT CURRENT NEEDS ARE MET AT THIS TIME.
[2023-04-09] MEDS: nicotine 2 mg Gum BUCCAL (12:47)
[2023-04-09 13:35] VITALS: BP 110/74; PULSE 67; RESP 14; TEMP 36.6; O2SAT 95
--- NOTE | 2023-04-09 15:53 | P.NPUPN_ITS ---
Subjective NPU Subjective: 42-year-old white female with a history of manic symptoms admitted with psychosis with active delusions. The patient continued to appear confused on the unit. She had remained somewhat paranoid and suspicious of others intentions. She had minimized the need to be here stating that she needed to go home as she repeatedly stated that no one was talking to her. The patient was unable to fully elaborate what was going on in her life but she did continue to support her belief that her children were unsafe in the home although she was unable to explain why or how she knew this information. She continued to isolate herself on the milieu. She had received some as needed medications to h elp with her sleep including Zyprexa last night. Mental Status Exam MSE Comments: The patient is a thin white female who had a disheveled appearance and appeared in severe distress. She remained quite agitated in her room in severe emotional distress. There was no evidence of any abnormal involuntary motor movements tics or tremors appreciated. She continued to show evidence of dissociation. Her speech was saccadic in rate, normal in volume. Her thought process was illogical and nonlinear. Her thought content showed no evidence of suicidal ideation with no homicidal ideation. There was clear evidence of paranoia and bizarre delusions. Her mood was described as frustrated. Her affect was odd and subdued. She was alert and oriented to person, but not date, time or location. Her recent and remote memory appeared grossly impaired. Her insight is impaired. Her judgment is poor. Her impulse control appeared limited. Vitals/I&O/Wt Last Vital Signs Temp 97.9 F 04/09/23 13:35 Pulse 67 04/09/23 13:35 Resp 14 04/09/23 13:35 BP 110/74 04/09/23 13:35 Pulse Ox 95 04/09/23 13:35 O2 Del Method Room Air 04/09/23 13:35 Weight last 48 hrs Weight 49.895 kg Data NPU 04/07/23 21:26 04/07/23 21:26 A&P Assessment and plan (1) Acute psychosis: (2) PTSD (post-traumatic stress disorder): (3) Suicidal ideation: (4) Cira: Plan 42-year-old white female who presents with psychosis and likely manic symptoms with no medications and a significant history of PTSD. The patient will require continued inpatient hospitalization involuntarily. 1. Encourage individual, group and milieu therapy. 2. Recommend sober living treatment at the highest level of care to which the patient is willing to commit. 3. Continue q-15 minute checks for safety.? 4. Increase Abilify to 15mg daily. Consider restarting Abilify Maintena. Involuntary Hold Information 96 Hour Hold: 96 Hour Involuntary Admission: Yes 96 Hour Hold Ending Date: 04/13/23 96 Hour Hold Ending Time: 22:40 Attestations NPU Medical Necessity Statement*: Inpatient hospitalization is medically necessary and the clinically appropriate intervention at this time. We will monitor medications and make changes as indicated. The patient's likely length of stay 5-7 days. Coding Level of Care Code Acute Code for [facility] Fwd Diagnoses Acute psychosis F23 PTSD (post-traumatic stress disorder) F43.10 Suicidal ideation R45.851 Cira F30.9
[2023-04-09] MEDS: acetaminophen 325 mg Tablet 650 MG PO (17:53)
[2023-04-09 19:21] VITALS: RESP 16
[2023-04-09] MEDS: ibuprofen 600 mg Tablet PO (20:19)
[2023-04-09] MEDS: trazodone 50 mg Tablet PO (20:19)
[2023-04-09] MEDS: OLANZapine 5 mg ODT PO (20:20)
--- NOTE | 2023-04-09 20:55 | PC.NURSE ---
IN BED RESTING AROUSES TO VOICE. DENIES SI/HI AND AVH AT THIS TIME. REPORTS DEPRESSION 03/22 AND ANXIETY 03/22. ZYDIS 5 MG GIVEN ORDERED FOR INCREASES ANXIETY. REPORTS BACK PAINB 10/20, IBUPROFEN 600 MG GIVEN ORDERED SEE MAR FOR DETAILS. PT REQUEST SOMETHING TO HELP ME SLEEP, I TOOK SOMETHING LAST NIGHT. PT WAS GIVEN TRAZODONE 50 MG ORDERED FOR INSOMNIA. PT CONTINUES TO HAVE A FLAT AFFECT AND IS SAD AND EASILY CRIES WITHOUT ANY INDICATION. MEDICATIONS WERE RECONCILED. PT STATES SHE HAS NOT TAKEN HER MEDICATIONS IN MONTHS. CAN NOT REMEMBER THE LAST TIME. ALL QUESTIONS ANSWERED AND SUPPORT WAS VOICED.
[2023-04-10 06:00] VITALS: BP 111/73; PULSE 70; RESP 16; TEMP 36.8; O2SAT 96
[2023-04-10] MEDS: ARIPiprazole 10 mg Tablet PO (08:16)
[2023-04-10] MEDS: ibuprofen 600 mg Tablet PO (08:17)
[2023-04-10] MEDS: ARIPiprazole 10 mg Tablet 5 MG PO (11:01)
[2023-04-10 14:00] VITALS: BP 106/62; PULSE 63; RESP 16; TEMP 37.1; O2SAT 97
--- NOTE | 2023-04-10 14:42 | W.PM.NPUPNS ---
Subjective NPU Subjective: 42-year-old white female with a history of manic symptoms admitted with psychosis with active delusions. The patient remained confused on the unit. She had stated that she wished to discuss what was going on with her and why she was having problems with her thoughts. She continued to report feeling confused stating that she had continued concerns about the safety of others. She had reported that she was struggling to think and reported that she had difficulties with being in a fog . The patient had isolated herself on the milieu. She had not endorsed any thoughts of hurting herself. She had reported some struggles with falling asleep. She had acknowledged having problems with feeling sad at times. She had reported that she had not decided to take the medications. She reported that she continued to be haunted by her previous trauma and reported that she frequently felt overwhelmed by her past. Mental Status Exam MSE Comments: The patient is a thin white female who had a disheveled appearance and appeared in severe distress. She was pacing in her room. There was no evidence of any abnormal involuntary motor movements tics or tremors appreciated. Her speech was saccadic in rate, normal in volume. Her thought process was more logical and goal directed. Her thought content showed no evidence of suicidal ideation with no homicidal ideation. There was continued evidence of paranoia and odd beliefts. Her mood was described as overwhelmed. Her affect was labile. She was alert and oriented to person, place and time. Her recent and remote memory appeared grossly impaired. Her insight is impaired. Her judgment is poor. Her impulse control appeared limited. Vitals/I&O/Wt Last Vital Signs Temp 98.7 F 04/10/23 14:00 Pulse 63 04/10/23 14:00 Resp 16 04/10/23 14:00 BP 106/62 04/10/23 14:00 Pulse Ox 97 04/10/23 14:00 O2 Del Method Room Air 04/10/23 14:00 Weight last 48 hrs Weight 48.308 kg Data NPU 04/07/23 21:26 04/07/23 21:26 A&P Assessment and plan (1) Acute psychosis: (2) PTSD (post-traumatic stress disorder): (3) Suicidal ideation: (4) Cira: Plan 42-year-old white female who presents with psychosis and likely manic symptoms with no medications and a significant history of PTSD. The patient will require continued inpatient hospitalization involuntarily. 1. Encourage individual, group and milieu therapy. 2. Recommend sober living treatment at the highest level of care to which the patient is willing to commit. 3. Continue q-15 minute checks for safety.? 4. Continue Abilify at15mg daily. Consider restarting Abilify Maintena. Involuntary Hold Information 96 Hour Hold: 96 Hour Involuntary Admission: Yes 96 Hour Hold Ending Date: 04/13/23 96 Hour Hold Ending Time: 22:40 Attestations NPU Medical Necessity Statement*: Inpatient hospitalization is medically necessary and the clinically appropriate intervention at this time. We will monitor medications and make changes as indicated. The patient's likely length of stay 5-7 days. Coding Level of Care Code Acute Code for [facility] Fwd Diagnoses Acute psychosis F23 PTSD (post-traumatic stress disorder) F43.10 Suicidal ideation R45.851 Cira F30.9
--- NOTE | 2023-04-10 18:26 | PC.NURSE ---
Patient has been mostly isolative and cooperative with care this shift. Patient was responding to internal stimuli this morning. She denies SI/HI/AVH, depression and anxiety. Patient came to visit her this evening. took patients wedding ring home with him. Patient educated on all medications given this shift.
[2023-04-10] MEDS: haloperidol 5 mg Tablet PO (20:17)
[2023-04-10] MEDS: trazodone 50 mg Tablet PO (20:17)
[2023-04-10] MEDS: acetaminophen 325 mg Tablet 650 MG PO (20:17)
--- NOTE | 2023-04-10 20:40 | PC.NURSE ---
IN BED RESTING AROUSES TO VOICE. PT IS OBSERVED TO STILL BE WITHDRAWN AND ISLOLATIVE. PT APPEARS DEPRESSED WITH FLAT AFFECT. DENIES SI/HI AND AVH AT THIS TIME. PT REPORTS PAIN 10 TYLENOL WAS GIVEN ORDERED. PT RATES DEPRESSION 03/22 AND ANXIETY /. PT WAS GIVEN TRAZODONE 50 MG FOR C/O INSOMNIA AND HALDOL 5 MG FOR ANXIETY. PT CAN NOT REMEMBER WHEN SHE HAD HER LAST BM, NEW ORDERS RECEIVED FROM DR. OWUSU FOR SENNA S 2 TABS PO DAILY PRN CONSTIPATION. PT IS QUIET SPOKEN AND APPEARS AT TIMES TO BE RESPONDING TO EXTERNAL STIMULI. PT CONTINUES TO DENY AVH. ALL QUESTIONS ANSWERED AND SUPPORT WAS VOICED.
[2023-04-10 21:00] VITALS: BP 106/72; PULSE 79; RESP 18; TEMP 36.7; O2SAT 97
[2023-04-11 06:00] VITALS: RESP 16
[2023-04-11] MEDS: ARIPiprazole 10 mg Tablet 15 MG PO (08:58)
[2023-04-11] MEDS: nicotine 21 mg Patch 1 PATCH TRANSDERMA (10:21)
[2023-04-11 13:07] VITALS: BP 146/83; PULSE 67; RESP 16; TEMP 36.4; O2SAT 99
--- NOTE | 2023-04-11 16:42 | P.NPUPN_ITS ---
Subjective NPU Subjective: 42-year-old white female with a history of manic symptoms admitted with psychosis with active delusions. The patient appeared less confused today. She had reported some improvement in sleep. She had continued to report having reoccurring thoughts about her trauma. She was able to see a therapist here on the unit that may become the patient's therapist on an outpatient basis through the behavioral health clinic here in [place]. The patient had continue to isolate herself. She appeared less suspicious of others. She had also felt less confused about why she was here. She had acknowledged having stopped the use of her Abilify previously and did acknowledge that it likely led to her decompensation. She had reported triggers to her breakdown was possible reminders of specific dates regarding her brothers . She reports that much of the trauma that had occurred had happened in the city that she currently resides in and states that she is uncertain as to whether there are triggers to her reexacerbation of PTSD and potential emergence of psychosis. Mental Status Exam MSE Comments: The patient is a thin white female who had a disheveled appearance and appeared in mild to moderate distress. There was decreased psychomotor activation. There was no evidence of any abnormal involuntary motor movements tics or tremors appreciated. Her speech was normal in rate, rhythm and prosody. Her thought process was more logical and goal directed. Her thought content showed no evidence of suicidal ideation with no homicidal ideation. She was less suspicious. Her mood was described as better. Her affect was anxious. She was alert and oriented to person, place and time. Her recent and remote memory was intact. Her insight is partial. Her florencio gment is poor. Her impulse control appeared limited. Vitals/I&O/Wt Last Vital Signs Temp 97.6 F 04/11/23 13:07 Pulse 67 04/11/23 13:07 Resp 16 04/11/23 13:07 BP 146/83 04/11/23 13:07 Pulse Ox 99 04/11/23 13:07 O2 Del Method Room Air 04/11/23 13:07 Weight last 48 hrs Weight 48.308 kg Data NPU 04/07/23 21:26 04/07/23 21:26 A&P Assessment and plan (1) Acute psychosis: (2) PTSD (post-traumatic stress disorder): (3) Suicidal ideation: (4) Cira: Plan 42-year-old white female who presents with psychosis and likely manic symptoms with no medications and a significant history of PTSD. The patient will require continued inpatient hospitalization involuntarily. 1. Encourage individual, group and milieu therapy. 2. Recommend sober living treatment at the highest level of care to which the patient is willing to commit. 3. Continue q-15 minute checks for safety.? 4. Continue Abilify at 15mg daily. Consider restarting Abilify Maintena. Involuntary Hold Information 2 96 Hour Hold: 96 Hour Involuntary Admission: Yes 96 Hour Hold Ending Date: 04/13/23 96 Hour Hold Ending Time: 22:40 Attestations NPU Medical Necessity Statement*: Inpatient hospitalization is medically necessary and the clinically appropriate intervention at this time. We will monitor medications and make changes as indicated. The patient appears to be improving. The patient's likely length of stay 2-4 days. Coding Level of Care Code Acute Code for g Fwd Diagnoses Acute psychosis F23 PTSD (post-traumatic stress disorder) F43.10 Suicidal ideation R45.851 Cira F30.9
[2023-04-11] MEDS: ibuprofen 600 mg Tablet PO (20:06)
[2023-04-11] MEDS: sennosides-docusate Tablet 2 TAB PO (20:06)
[2023-04-11] MEDS: OLANZapine 5 mg ODT PO (20:06)
[2023-04-11] MEDS: trazodone 50 mg Tablet PO (20:06)
--- NOTE | 2023-04-11 20:52 | PC.NURSE ---
IN BED RESTING AROUSES TO VOICE. PT STATES I HAD A GOOD DAY TODAY. PT REPORTS PAIN IN BACK 4/10 IBUPROFEN GIEN ORDERED FOR PAIN. PT CONTINUES TO REPORT ANXIETY AND DEPRESSION. RATES DEPRESSION 01/20 AND ANXIETY /. PT RATINGS HAVE DECLINED SLIGHTLY SINCE LAST NIGHTS SHIFT. PT DENIES SI/HI AND AVH AT THIS TIME. PT DOES NOT APPEAR TO BE RESPONDING TO INTERNAL OR EXTERNAL STIMULI. REPORTS SMALL BM LAST SHIFT. SENNA S 2 TABS GIVEN ORDERED FOR CONSTIPATION. PT WAS GIVEN TRAZODONE 50 MG FOR SLEEP AND ZYDIS 5 MG FOR INCREASED LEVEL OF ANXIETY. ALL QUESTIONS ANSWERED AND SUPPORT VOICED.
[2023-04-11 21:05] VITALS: BP 134/82; PULSE 69; RESP 18; TEMP 36.5; O2SAT 99
[2023-04-12 06:00] VITALS: BP 111/66; PULSE 79; RESP 16; TEMP 36.6; O2SAT 98
[2023-04-12] MEDS: ibuprofen 600 mg Tablet PO ×2 (07:25→18:26)
[2023-04-12] MEDS: ARIPiprazole 10 mg Tablet 15 MG PO (08:12)
[2023-04-12] MEDS: nicotine 21 mg Patch 1 PATCH TRANSDERMA (12:18)
[2023-04-12] MEDS: acetaminophen 325 mg Tablet 650 MG PO (13:52)
[2023-04-12 14:00] VITALS: BP 110/70; PULSE 72; RESP 16; TEMP 36.9; O2SAT 98
--- NOTE | 2023-04-12 17:26 | W.PM.NPUPNS ---
Subjective NPU Subjective: 42-year-old white female with a history of manic symptoms admitted with psychosis with active delusions. The patient denied any hallucinations at this time. She had reported feeling much better. She had reported that her mood had been better. She stated that she struggled with remembering to take her medications at times but was agreeable to continuing the Abilify on an outpatient basis. Staff notes the patient had engaged in maintenance of her own self-care today. She still had remained isolative. She had reported having occasional recurring thoughts regarding her past trauma. She had reported improved sleep. Mental Status Exam MSE Comments: The patient is a thin white female who had a disheveled appearance and appeared in mild to moderate distress. There was decreased psychomotor activation. There was no evidence of any abnormal involuntary motor movements tics or tremors appreciated. Her speech was normal in rate, rhythm and prosody. Her thought process was more logical and goal directed. Her thought content showed no evidence of suicidal ideation with no homicidal ideation. There was no overt paranoia. Her mood was described as better. Her affect was brighter. She was alert and oriented to person, place and time. Her recent and remote memory was intact. Her insight is partial. Her judgment is improving. Her impulse control appeared limited. Vitals/I&O/Wt Last Vital Signs Temp 98.4 F 04/12/23 14:00 Pulse 72 04/12/23 14:00 Resp 16 04/12/23 14:00 BP 110/70 04/12/23 14:00 Pulse Ox 98 04/12/23 14:00 O2 Del Method Room Air 04/12/23 14:00 Data NPU 04/07/23 21:26 04/07/23 21:26 A&P Assessment and plan (1) Acute psychosis: (2) PTSD (post-traumatic stress disorder): (3) Suicidal ideation: (4) Cira: Plan 42-year-old white female who presents with psychosis and likely manic symptoms with no medications and a significant history of PTSD. The patient will require continued inpatient hospitalization involuntarily. 1. Encourage individual, group and milieu therapy. 2. Recommend sober living treatment at the highest level of care to which the patient is willing to commit. 3. Continue q-15 minute checks for safety.? 4. Continue Abilify at 15mg daily. Consider restarting Abilify Maintena. Involuntary Hold Information 96 Hour Hold: 96 Hour Involuntary Admission: Yes 96 Hour Hold Ending Date: 04/13/23 96 Hour Hold Ending Time: 22:40 Attestations NPU Medical Necessity Statement*: Inpatient hospitalization is medically necessary and the clinically appropriate intervention at this time. We will monitor medications and make changes as indicated. The patient appears to be improving. The patient's likely length of stay 2-3days. Coding Level of Care Code Acute Code for g Fwd Diagnoses Acute psychosis F23 PTSD (post-traumatic stress disorder) F43.10 Suicidal ideation R45.851 Cira F30.9
[2023-04-12] MEDS: trazodone 50 mg Tablet PO (20:20)
[2023-04-12 20:43] VITALS: BP 138/87; PULSE 70; RESP 16; TEMP 36.9; O2SAT 96
--- NOTE | 2023-04-13 04:54 | PC.NURSE ---
Patient denies SI/HI/AVH. Patient endorses mild depression rated 4/10 however voices that she feels a lot better. Patient brightens with interaction. She states she has a good support system on discharge. Patient received trazadone 50 mg po last night for c/o insomnia and has slept most of this shift.
[2023-04-13 06:00] VITALS: BP 177/75; PULSE 75; RESP 16; TEMP 36.6; O2SAT 98
[2023-04-13] MEDS: ARIPiprazole 10 mg Tablet 15 MG PO (08:37)
[2023-04-13] MEDS: acetaminophen 325 mg Tablet 650 MG PO (08:38)
[2023-04-13] MEDS: sertraline 50 mg Tablet 25 MG PO (09:59)
[2023-04-13] MEDS: NON-FORMULARY MEDICATION 300 EACH IM (11:16)
--- NOTE | 2023-04-13 11:23 | PC.NURSE ---
PT RECEIVED ABILIFY MAINTENNA 300MG IM Q MONTHLY INJECTION TODAY INTO THE R DELTOID. PT TOLERATED INJECTION WELL.
[2023-04-13] MEDS: ibuprofen 600 mg Tablet PO (12:29)
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
[2023-04-13 13:34] VITALS: BP 177/75; PULSE 75; RESP 16; TEMP 36.6; O2SAT 98
== END 2023-04-13 14:11 | disposition home or self-care (01) | DRG 885 ==
LOC: ER 22:12 → NP 22:55
PROVIDERS: Admitting Provider Psychiatry & Neurology Psychiatry; Emergency Provider Emergency Medicine; PCP Nurse Practitioner Family; Visit Provider Psychiatry & Neurology Psychiatry
DX: F23 Brief psychotic disorder (principal); R45.851 Suicidal ideations; F43.10 Post-traumatic stress disorder, unspecified; F30.9 Manic episode, unspecified; F41.1 Generalized anxiety disorder
CPT/HCPCS: 36415; 80053; 80306; 80307; 81001; 81025; 85025; 96372; 97150; 97165; 99285

== ENCOUNTER → 2023-06-22 10:58 | Outpatient (BNVA) | payer MEDICAID, SELFPAY | PROVIDERS: PCP Nurse Practitioner Family; Visit Provider Nurse Practitioner Family | DX: R30.0 Dysuria (principal); N39.0 Urinary tract infection, site not specified | CPT/HCPCS: 81000; 87077; 87086; 87184 ==

== ENCOUNTER 2023-12-20 15:25 | Inpatient (IN) | payer MEDICAID, SELFPAY ==
[2023-12-20 15:25] VITALS: BP 143/86; PULSE 73; RESP 16
[2023-12-20 15:38] VITALS: TEMP 36.8
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
[2023-12-20] MEDS: LORazepam 1 mg Tablet PO (15:51)
[2023-12-20] MEDS: OLANZapine 5 mg TABLET PO (15:52)
[2023-12-20 16:31] LABS: Basophils % 0.2 %; Eosinophils # 0.1 10^3/uL (0.0-0.8); Eosinophils % 0.3 %; Hematocrit 42.3 % (36-47); Lymphocytes % 10.9 %; Mean Corpuscular HGB Conc 33.8 g/dL (30-55); Mean Corpuscular Hemoglobin 33.1 pg (27-33); Mean Corpuscular Volume 97.9 fl (85-98); Mean Platelet Volume 9.3 fL (7.4-10.4); Monocytes # 0.9 10^3/uL (0.2-0.9); Neutrophils # 14.89 10^3/uL (1.8-7.7); Neutrophils % 83.2 %; Nucleated Red Blood Cells % 0 %; Platelet Count 373 10^3/cmm (157-399); Red Blood Count 4.32 10^6/uL (3.85-5.65); Red Cell Distribution Width 11.8 % (12.1-15.1)
[2023-12-20 16:54] LABS: SARS Covid-2 Antigen negative (Negative)
[2023-12-20 16:55] LABS: Influenza A by IFA negative (Negative); Influenza B by IFA negative (Negative)
[2023-12-20 17:01] LABS: HCG, Serum Qual Negative (Negative)
[2023-12-20 17:01] LABS: RSV Transfer Patient (ED) Negative (Negative)
[2023-12-20 17:17] LABS: Potassium 3.5 mmol/L (3.5-5.1); Sodium 137 mmol/L (136-145)
[2023-12-20 17:18] LABS: Alanine Aminotransferase 14 U/L (0-33); Albumin Level 4.6 g/dL (3.5-5.2); Alkaline Phosphatase 71 U/L (35-105); Anion Gap 20.5 (5-19); Aspartate Amino Transferase 19 U/L (0-32); Blood Urea Nitrogen 10 mg/dL (6-20); Calcium 9.3 mg/dL (8.5-10.5); Carbon Dioxide 20 mmol/L (22-29); Chloride 100 mmol/L (98-107); Creatinine Clr Calc Pharmacy 97.2844; Globulin 2.9 g/dL (1.3-4.6); Glomerular Filtration Rate 109.6 mL/min (90-130); Glucose 86 mg/dL (65-115); Osmolality Calculated 282 mOsm/kg (285-295); Total Bilirubin 0.3 mg/dL (0.15-1.2); Total Protein 7.5 g/dL (6.6-8.7)
[2023-12-20 17:21] LABS: Acetaminophen < 5.0 ug/mL (10-30); Alcohol Level < 10 mg/dL (0-10); Salicylate < 0.3 mg/dL (3-10)
[2023-12-20 18:06] LABS: Add Urine Microscopic? YES; Bilirubin Urine Neg (Negative); Blood Urine 3+ (Negative); Glucose Urine UA Norm (Normal); Ketones Urine 2+ (Negative); Leukocyte Esterase Urine Negative (Negative); Nitrate Urine Negative (Negative); Protein Urine Neg (Negative); Specific Gravity, Urine 1.025 (1.005-1.030); Urine Appearance Cloudy (CLEAR); Urine Color Yellow (Yellow); Urobilinogen Urine Norm (Negative); pH Urine 5 (5-7)
[2023-12-20 18:17] LABS: Amphetamines Screen Urine Negative (Negative); Barbiturates Screen Urine Negative (Negative); Benzodiazepines Screen Urine Negative (Negative); Cocaine Screen Urine Negative (Negative); Opiate Screen Urine Negative (Negative); PCP Screen Urine Negative (Negative); THC Screen Urine Positive (Negative)
[2023-12-20 18:18] LABS: Bacteria Urine TRACE /hpf; RBC Urine >100 /hpf (0-2); WBC Urine 0-4 /hpf (0-5)
[2023-12-20 18:19] LABS: Add Urine Culture? Yes
[2023-12-20 19:38] VITALS: BP 112/78; PULSE 87; RESP 14; TEMP 36.9; O2SAT 98
[2023-12-20 22:31] VITALS: BP 121/72; PULSE 87; RESP 16; TEMP 36.9; O2SAT 96
--- NOTE | 2023-12-21 00:36 | PC.NURSE ---
[facility] Pt served with copy of [facility] by this RN and security. Pt A&O and receptive of information. All questions answered.
[2023-12-21 01:04] VITALS: BP 121/72; PULSE 87; RESP 16; TEMP 36.9; O2SAT 96
[2023-12-21 01:06] VITALS: BP 120/76; PULSE 94; RESP 14; TEMP 36.5; O2SAT 95
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
[2023-12-21 06:00] VITALS: BP 133/78; PULSE 95; RESP 15; TEMP 36.8; O2SAT 97
[2023-12-21] MEDS: ondansetron 4 MG Tablet PO (09:46)
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
[2023-12-21 13:58] VITALS: BP 122/69; PULSE 88; RESP 16; TEMP 36.8; O2SAT 97
[2023-12-21] MEDS: nicotine 4 mg lozenge MUCOUS MEM (20:11)
[2023-12-21] MEDS: trazodone 50 mg Tablet PO (20:11)
[2023-12-21] MEDS: ARIPiprazole 10 mg Tablet PO (20:15)
[2023-12-21 21:26] VITALS: BP 120/79; PULSE 71; RESP 15; TEMP 36.5; O2SAT 97
[2023-12-22 06:00] VITALS: BP 110/70; PULSE 81; RESP 15; TEMP 36.6; O2SAT 95
[2023-12-22] MEDS: ARIPiprazole 10 mg Tablet PO (09:42)
[2023-12-22 14:00] VITALS: BP 124/77; PULSE 73; RESP 16; TEMP 36.9; O2SAT 96
--- NOTE | 2023-12-22 19:40 | W.PM.NPUPNS ---
Subjective NPU Subjective: Patient presented today reporting that she is doing okay. She feels like she is doing better and reported that the medications clearly were helping and that she has a real problem with getting better and then deciding that being on the medication is not necessary. She reports that the Abilify has been quite helpful. We discussed the fact that she needs to consider the long-acting injectable given his propensity to discontinue her medication on a whim. She denied any side effects of the medication. We discussed working with her family to identify what amount of improvement is being noted to explore when discharge would be appropriate. Mental Status Exam MSE Comments: This is a slender/well-nourished well-developed white female in hospital scrubs who had a disheveled appearance, but appropriate eye contact. There were no abnormal movements except for mild psychomotor retardation. Cooperative with exam in mild distress. Her speech was decreased rate and volume. Mood described as okay, missing my family, affect slightly subdued. Her thought process was linear. Her thought content showed no evidence of active homicidal or suicidal ideation. There were no delusions reported or noted she denied any auditory or visual hallucinations. Attention and concentration appeared intact and memory seemed more reliable but none were formally tested. She is alert and oriented x 3. Her insight and judgment were limited and impulse control was limited. Vitals/I&O/Wt Last Vital Signs Temp 98.5 F 12/22/23 14:00 Pulse 73 12/22/23 14:00 Resp 16 12/22/23 14:00 BP 124/77 12/22/23 14:00 Pulse Ox 96 12/22/23 14:00 O2 Del Method Room Air 12/22/23 06:00 Data NPU 12/20/23 16:19 12/20/23 16:19 Micro: Microbiology 12/20/23 15:55 Urine Culture - Preliminary Urine,Clean Catch Gram Negative Rods Microbiology 12/20/23 15:55 Urine,Clean Catch Urine Culture - Preliminary Gram Negative Rods A&P Assessment and plan (1) Acute psychosis: (2) Bipolar I disorder, recurrent manic episode: (3) PTSD (post-traumatic stress disorder): (4) Suicidal ideation: (5) Cira: Plan 43-year-old white female who presents with psychosis and likely manic symptoms with noncompliance with medications or treatment previously successfully treated on Abilify. The patient will require continued inpatient hospitalization involuntarily. 1. Encourage individual, group and milieu therapy. 2. Recommend sober living treatment at the highest level of care to which the patient is willing to commit. 3. Continue q-15 minute checks for safety.? 4. Restarted Abilify 10mg with titration to 15mg daily. Involuntary Hold Information 96 Hour Hold: 96 Hour Involuntary Admission: Yes 96 Hour Hold Ending Date: 12/26/23 96 Hour Hold Ending Time: 23:42 Attestations NPU Medical Necessity Statement*: Inpatient hospitalization is medically necessary and the clinically appropriate intervention ?at this time.? We will monitor/initiate medications and make changes as indicated.?The patient?s likely length of stay 2-5 days. Coding Level of Care Code Acute Code for [facility] Fwd Diagnoses Acute psychosis F23 Bipolar I disorder, recurrent manic episode F31.10 PTSD (post-traumatic stress disorder) F43.10 Suicidal ideation R45.851 Cira F30.9
[2023-12-22] MEDS: trazodone 50 mg Tablet PO (20:21)
[2023-12-22] MEDS: nicotine 4 mg lozenge MUCOUS MEM (20:21)
[2023-12-22 21:55] VITALS: BP 123/77; PULSE 63; RESP 14; TEMP 36.6; O2SAT 96
[2023-12-23 05:59] VITALS: BP 120/75; PULSE 73; RESP 16; TEMP 36.6; O2SAT 97
[2023-12-23] MEDS: ARIPiprazole 10 mg Tablet PO (08:11)
--- NOTE | 2023-12-23 09:20 | PC.NURSE ---
Patient denies avh and si/hi. She does endorse being anxious. She states she feels her brain is trying to remember something from her childhood, but doesn't know what it may be. Patient appears to be troubled by this. Patient also became tearful when talking about starting to think about her brother very often lately who passed when he was 19. She was 17 at the time. She says she doesn't understand why she's upset since it has been such a long time, but this RN told her it is normal for a loved one passing to still affect us later in life. She says all of her happy memories during her childhood are associated with him. Patient also expresses regret about not being there 100% while raising her kids by herself. This RN also told patient that it is human to not be able to give 100% all of the time, and that she shouldn't be so hard on herself. Patient agreed and appeared to be a bit more calm when assessment had ended.
--- NOTE | 2023-12-23 13:09 | P.NPUPN_ITS ---
Subjective NPU 2 Subjective: Patient presented today reporting that she was doing a little better. We discussed our conversation whether where they discussed that some of the thoughts disorder and depression seems to be the greater concern that she was able to agree that depression is still an issue. This was difficult for her because she is hoping to discharge sooner rather than later. We discussed the risks, benefits and alternatives of initiating Lexapro and she understood and agreed to proceed as is documented in this note. We agreed to consider discharge as soon as possible but agreed that we wanted to have signs of improvement in the depression. Mental Status Exam 2 MSE Comments: This is a slender/well-nourished well-developed white female in hospital scrubs who had a disheveled appearance, but appropriate eye contact. There were no abnormal movements except for mild psychomotor retardation. Cooperative with exam in mild distress. Her speech was decreased rate and volume. Mood described as still some depression, missing my family, affect slightly subdued. Her thought process was linear. Her thought content showed no evidence of active homicidal or suicidal ideation. There were no delusions reported or noted she denied any auditory or visual hallucinations. Attention and concentration appeared intact and memory seemed more reliable but none were formally tested. She is alert and oriented x 3. Her insight and judgment were limited and impulse control was limited. Vitals/I&O/Wt Last Vital Signs Temp 97.9 F 12/23/23 05:59 Pulse 73 12/23/23 05:59 Resp 16 12/23/23 05:59 BP 120/75 12/23/23 05:59 Pulse Ox 97 12/23/23 05:59 O2 Del Method Room Air 12/23/23 05:59 Data NPU 12/20/23 16:19 12/20/23 16:19 Micro: Microbiology 12/20/23 15:55 Urine Culture - Final Urine,Clean Catch Enterobacter aerogenes Microbiology 12/20/23 15:55 Urine,Clean Catch Urine Culture - Final Enterobacter aerogenes A&P Assessment and plan (1) Acute psychosis: (2) Bipolar I disorder, recurrent manic episode: (3) PTSD (post-traumatic stress disorder): (4) Suicidal ideation: (5) Cira: Plan 43-year-old white female who presents with psychosis and likely manic symptoms with noncompliance with medications or treatment previously successfully treated on Abilify. The patient will require continued inpatient hospitalization involuntarily. 1. Encourage individual, group and milieu therapy. 2. Recommend sober living treatment at the highest level of care to which the patient is willing to commit. 3. Continue q-15 minute checks for safety.? 4. Restarted Abilify 10mg with titration to 15mg daily. Start Lexapro 10 mg p.o. daily. 5. Discussed situation with and he reported concerns about ongoing depression which is consistent with staff reports. Involuntary Hold Information 2 96 Hour Hold: 96 Hour Involuntary Admission: Yes 96 Hour Hold Ending Date: 12/26/23 96 Hour Hold Ending Time: 23:42 Attestations NPU 2 Medical Necessity Statement*: Inpatient hospitalization is medically necessary and the clinically appropriate intervention ?at this time.? We will monitor/initiate medications and make changes as indicated.?The patient?s likely length of stay 2-4 days. Coding Level of Care Code Acute Code for [facility] [place] Fwd Diagnoses Acute psychosis F23 Bipolar I disorder, recurrent manic episode F31.10 PTSD (post-traumatic stress disorder) F43.10 Suicidal ideation R45.851 Cira F30.9
[2023-12-23 14:00] VITALS: BP 114/67; PULSE 85; RESP 16; TEMP 37; O2SAT 97
[2023-12-23 19:58] VITALS: BP 123/65; PULSE 66; RESP 18; TEMP 36.9; O2SAT 97
[2023-12-23] MEDS: trazodone 50 mg Tablet PO (20:29)
[2023-12-23] MEDS: sulfamethoxazole-trimeth DS 160-800 mg Tablet 1 TAB PO (20:29)
[2023-12-23] MEDS: nicotine 4 mg lozenge MUCOUS MEM (20:29)
[2023-12-24 06:00] VITALS: BP 107/49; PULSE 78; RESP 16; TEMP 37; O2SAT 99
[2023-12-24] MEDS: ARIPiprazole 10 mg Tablet PO (08:38)
[2023-12-24] MEDS: escitalopram 10 mg Tablet PO (08:38)
[2023-12-24] MEDS: sulfamethoxazole-trimeth DS 160-800 mg Tablet 1 TAB PO ×2 (08:38→20:18)
--- NOTE | 2023-12-24 09:58 | P.NPUPN_ITS ---
Subjective NPU 2 Subjective: Patient presents today reporting that she is feeling okay and with slight improvements. She was somewhat frustrated about feeling we were relying on her 's opinion of the situation more than hers but we identified we were just seeking collateral information. She continues to lament about some possible memories that she fears are repressed that she has recently recovered. We had a significant discussion about repressed memories and the fallibility of memories in general. We also discussed the possibility that these repressed memories actually represent issues surrounding her psychosis that is resolving. She denied any side effects to the medication. Mental Status Exam 2 MSE Comments: This is a slender/well-nourished well-developed white female in hospital scrubs who had a disheveled appearance, but appropriate eye contact. There were no abnormal movements except for mild psychomotor retardation. Cooperative with exam in mild distress. Her speech was decreased rate and volume. Mood described as still some depression, missing my family, affect slightly subdued. Her thought process was linear. Her thought content showed no evidence of active homicidal or suicidal ideation. There were no delusions reported or noted she denied any auditory or visual hallucinations. Attention and concentration appeared intact and memory seemed more reliable but none were formally tested. She is alert and oriented x 3. Her insight and judgment were limited and impulse control was limited. Vitals/I&O/Wt Last Vital Signs Temp 98.6 F 12/24/23 06:00 Pulse 78 12/24/23 06:00 Resp 16 12/24/23 06:00 BP 107/49 12/24/23 06:00 Pulse Ox 99 12/24/23 06:00 O2 Del Method Room Air 12/23/23 19:58 Data NPU 12/20/23 16:19 12/20/23 16:19 Micro: Microbiology 12/20/23 15:55 Urine Culture - Final Urine,Clean Catch Enterobacter aerogenes Microbiology 12/20/23 15:55 Urine,Clean Catch Urine Culture - Final Enterobacter aerogenes A&P Assessment and plan (1) Acute psychosis: (2) Bipolar I disorder, recurrent manic episode: (3) PTSD (post-traumatic stress disorder): (4) Suicidal ideation: (5) Cira: Plan 43-year-old white female who presents with psychosis and likely manic symptoms with noncompliance with medications or treatment previously successfully treated on Abilify. The patient will require continued inpatient hospitalization involuntarily. 1. Encourage individual, group and milieu therapy. 2. Recommend sober living treatment at the highest level of care to which the patient is willing to commit. 3. Continue q-15 minute checks for safety.? 4. Restarted Abilify 10mg with titration to 15mg daily. Start Lexapro 10 mg p.o. daily. 5. Discussed situation with and he reported concerns about ongoing depression which is consistent with staff reports. Involuntary Hold Information 2 96 Hour Hold: 96 Hour Involuntary Admission: Yes 96 Hour Hold Ending Date: 12/26/23 96 Hour Hold Ending Time: 23:42 Attestations NPU 2 Medical Necessity Statement*: Inpatient hospitalization is medically necessary and the clinically appropriate intervention ?at this time.? We will monitor/initiate medications and make changes as indicated.?The patient?s likely length of stay 1-4 days. Coding Level of Care Code Acute Code for g Fwd Diagnoses Acute psychosis F23 Bipolar I disorder, recurrent manic episode F31.10 PTSD (post-traumatic stress disorder) F43.10 Suicidal ideation R45.851 Cira F30.9
[2023-12-24 14:00] VITALS: BP 119/70; PULSE 107; RESP 16; TEMP 36.8; O2SAT 96
[2023-12-24] MEDS: trazodone 50 mg Tablet PO (20:18)
[2023-12-24 22:00] VITALS: BP 113/60; PULSE 73; RESP 17; TEMP 37; O2SAT 97
[2023-12-25 06:00] VITALS: BP 137/99; PULSE 74; RESP 16; TEMP 36.7; O2SAT 97
[2023-12-25] MEDS: escitalopram 10 mg Tablet PO (09:03)
[2023-12-25] MEDS: nicotine 4 mg lozenge MUCOUS MEM (09:03)
[2023-12-25] MEDS: ARIPiprazole 10 mg Tablet PO (09:03)
[2023-12-25] MEDS: sulfamethoxazole-trimeth DS 160-800 mg Tablet 1 TAB PO ×2 (09:03→20:06)
[2023-12-25 14:00] VITALS: BP 118/62; PULSE 81; RESP 16; TEMP 37.1; O2SAT 97
--- NOTE | 2023-12-25 18:10 | P.NPUPN_ITS ---
Subjective NPU 2 Subjective: Patient presented today reporting that she was feeling optimistic about her treatment moving forward. She knows she needs to continue the medication and she is feeling better now that the Abilify and the Lexapro are on board. We discussed her considering restarting the the Abilify maintainer injection discussing the risks, benefits and alternatives and she understood and agreed to proceed as is documented in this note. She denied any side effects to medication we discussed the likelihood of discharge tomorrow. Mental Status Exam 2 MSE Comments: This is a slender/well-nourished well-developed white female in hospital scrubs who had a disheveled appearance, but appropriate eye contact. There were no abnormal movements except for mild psychomotor retardation. Cooperative with exam in mild distress. Her speech was decreased rate and volume. Mood described as feeling better, missing my family, affect slightly subdued. Her thought process was linear. Her thought content showed no evidence of active homicidal or suicidal ideation. There were no delusions reported or noted she denied any auditory or visual hallucinations. Attention and concentration appeared intact and memory seemed more reliable but none were formally tested. She is alert and oriented x 3. Her insight and judgment were limited and impulse control was limited. Vitals/I&O/Wt Last Vital Signs Temp 98.7 F 12/25/23 14:00 Pulse 81 12/25/23 14:00 Resp 16 12/25/23 14:00 BP 118/62 12/25/23 14:00 Pulse Ox 97 12/25/23 14:00 O2 Del Method Room Air 12/25/23 14:00 Weight last 48 hrs Weight 55.338 kg Data NPU 12/20/23 16:19 12/20/23 16:19 A&P Assessment and plan (1) Acute psychosis: (2) Bipolar I disorder, recurrent manic episode: (3) PTSD (post-traumatic stress disorder): (4) Suicidal ideation: (5) Cira: Plan 43-year-old white female who presents with psychosis and likely manic symptoms with noncompliance with medications or treatment previously successfully treated on Abilify. The patient will require continued inpatient hospitalization involuntarily. 1. Encourage individual, group and milieu therapy. 2. Recommend sober living treatment at the highest level of care to which the patient is willing to commit. 3. Continue q-15 minute checks for safety.? 4. Restarted Abilify 10mg with titration to 15mg daily. Started Lexapro 10 mg p.o. daily. Consider the Abilify Maintena injection 400 mg IM before discharge likely tomorrow. 5. Discussed situation with and he reported concerns about ongoing depression which is consistent with staff reports. Involuntary Hold Information 2 96 Hour Hold: 96 Hour Involuntary Admission: Yes 96 Hour Hold Ending Date: 12/26/23 96 Hour Hold Ending Time: 23:42 Attestations NPU 2 Medical Necessity Statement*: Inpatient hospitalization is medically necessary and the clinically appropriate intervention ?at this time.? We will monitor/initiate medications and make changes as indicated.?The patient?s likely length of stay 1-2 days. Coding Level of Care Code Acute Code for [facility] Fwd Diagnoses Acute psychosis F23 Bipolar I disorder, recurrent manic episode F31.10 PTSD (post-traumatic stress disorder) F43.10 Suicidal ideation R45.851 Cira F30.9
[2023-12-25 19:58] VITALS: BP 125/68; PULSE 94; RESP 16; TEMP 36.9; O2SAT 98
[2023-12-25] MEDS: trazodone 50 mg Tablet PO (20:06)
[2023-12-26 06:00] VITALS: BP 130/74; PULSE 96; RESP 16; TEMP 37; O2SAT 97
[2023-12-26] MEDS: escitalopram 10 mg Tablet PO (08:13)
[2023-12-26] MEDS: ARIPiprazole 10 mg Tablet PO (08:13)
[2023-12-26] MEDS: sulfamethoxazole-trimeth DS 160-800 mg Tablet 1 TAB PO (08:13)
[2023-12-26] MEDS: ARIPiprazole Maintena 400 MG IM (12:03)
--- NOTE | 2023-12-26 12:52 | P.NPUDS_ITS ---
Diagnoses at Discharge Discharge Diagnosis (1) Acute psychosis: Status: Resolved (2) Bipolar I disorder, recurrent manic episode: Status: Acute (3) PTSD (post-traumatic stress disorder): Status: Acute (4) Suicidal ideation: Status: Resolved (5) Cira: Status: Resolved Reason for Visit Reason for Visit: Anxiety Involuntary Hold Information 96 Hour Hold: 96 Hour Involuntary Admission: Yes 96 Hour Hold Ending Date: 12/26/23 96 Hour Hold Ending Time: 23:42 Mental Status Exam MSE Comments: This is a slender/well-nourished well-developed white female in hospital scrubs who had a disheveled appearance, but appropriate eye contact. There were no abnormal movements except for mild psychomotor retardation. Cooperative with exam in mild distress. Her speech was decreased rate and volume. Mood described as feeling better, missing my family, affect slightly subdued. Her thought process was linear. Her thought content showed no evidence of active homicidal or suicidal ideation. There were no delusions reported or noted she denied any auditory or visual hallucinations. Attention and concentration appeared intact and memory seemed more reliable but none were formally tested. She is alert and oriented x 3. Her insight and judgment were limited and impulse control was limited. Discharge Data Studies Completed and Pending: Laboratory Results WBC 17.90 10^3/uL (3. 29-11.43) H 12/20/23 16:19 RBC 4.32 10^6/uL (3.8 5-5.65) 12/20/23 16:19 Hgb 14.30 g/dL (11.27 -16.99) 12/20/23 16:19 Hct 42.3 % (36-47) 12/20/23 16:19 MCV 97.9 fl (85-98) 12/20/23 16:19 MCH 33.1 pg (27-33) H 12/20/23 16:19 MCHC 33.8 g/dL (30-55) 12/20/23 16:19 RDW 11.8 % (12.1-15.1 ) L 12/20/23 16:19 Plt Count 373 10^3/cmm (157 -399) 12/20/23 16:19 MPV 9.3 fL (7.4-10.4) 12/20/23 16:19 Neut % (Auto) 83.2 % 12/20/23 16:19 Lymph % (Auto) 10.9 % 12/20/23 16:19 [place] % (Auto) 5.0 % 12/20/23 16:19 Eos % (Auto) 0.3 % 12/20/23 16:19 Baso % (Auto) 0.2 % 12/20/23 16:19 Neut # (Auto) 14.89 10^3/uL (1. 8-7.7) H 12/20/23 16:19 Lymph # (Auto) 2.0 10^3/uL (0.8- 4.8) 12/20/23 16:19 [place] # (Auto) 0.9 10^3/uL (0.2- 0.9) 12/20/23 16:19 Eos # (Auto) 0.1 10^3/uL (0.0- 0.8) 12/20/23 16:19 Baso # (Auto) 0.0 10^3/uL (0.0- 0.1) 12/20/23 16:19 Nucleated RBC % (a uto) 0 % 12/20/23 16:19 Nucleated RBCs # 0.0 /100WBC 12/20/23 16:19 Sodium 137 mmol/L (136-1 45) 12/20/23 16:19 Potassium 3.5 mmol/L (3.5-5 .1) 12/20/23 16:19 Chloride 100 mmol/L (98-10 7) 12/20/23 16:19 Carbon Dioxide 20 mmol/L (22-29) L 12/20/23 16:19 Anion Gap 20.5 (5-19) H 12/20/23 16:19 BUN 10 mg/dL (6-20) 12/20/23 16:19 Creatinine 0.6 mg/dL (0.5-0. 9) 12/20/23 16:19 GFR Calculation 109.6 mL/min (90- 130) 12/20/23 16:19 Glucose 86 mg/dL (65-115) 12/20/23 16:19 Calculated Osmolal ity 282 mOsm/kg (285- 295) L 12/20/23 16:19 Calcium 9.3 mg/dL (8.5-10 .5) 12/20/23 16:19 Total Bilirubin 0.3 mg/dL (0.15-1 .2) 12/20/23 16:19 AST 19 U/L (0-32) 12/20/23 16:19 ALT 14 U/L (0-33) 12/20/23 16:19 Alkaline Phosphata se 71 U/L (35-105) 12/20/23 16:19 Total Protein 7.5 g/dL (6.6-8.7 ) 12/20/23 16:19 Albumin 4.6 g/dL (3.5-5.2 ) 12/20/23 16:19 Globulin 2.9 g/dL (1.3-4.6 ) 12/20/23 16:19 HCG, Qual Negative (Negati ve) 12/20/23 16:19 Urine Color Yellow (Yellow) 12/20/23 15:55 Urine Appearance Cloudy (CLEAR) A 12/20/23 15:55 Urine pH 5 (5-7) 12/20/23 15:55 Ur Specific Gravit y 1.025 (1.005-1.0 30) 12/20/23 15:55 Urine Protein Neg (Negative) 12/20/23 15:55 Urine Glucose (UA) Norm (Normal) 12/20/23 15:55 Urine Ketones 2+ (Negative) H 12/20/23 15:55 Urine Blood 3+ (Negative) H 12/20/23 15:55 Urine Nitrate Negative (Negati ve) 12/20/23 15:55 Urine Bilirubin Neg (Negative) 12/20/23 15:55 Urine Urobilinogen Norm mg/dL (Negat tori) 12/20/23 15:55 Ur Leukocyte Mary Kay ase Negative (Negati ve) 12/20/23 15:55 Urine RBC >100 /hpf (0-2) 12/20/23 15:55 Urine WBC 0-4 /hpf (0-5) H 12/20/23 15:55 Ur Squamous Epith Cells 5-10 /hpf (0-5) H 12/20/23 15:55 Amorphous Sediment Not Reportable 12/20/23 15:55 Urine Bacteria Trace /hpf (NONE) 12/20/23 15:55 Urine Mucus None /hpf 12/20/23 15:55 Salicylates < 0.3 mg/dL (3-10 ) L 12/20/23 16:19 Urine Opiates Scre en Negative ng/mL (N egative) 12/20/23 15:55 Acetaminophen < 5.0 ug/mL (10-3 0) L 12/20/23 16:19 Ur Barbiturates Sc reen Negative ng/mL (N egative) 12/20/23 15:55 Ur Phencyclidine S crn Negative ng/mL (N egative) 12/20/23 15:55 Ur Amphetamines Sc reen Negative ng/mL (N egative) 12/20/23 15:55 U Benzodiazepines Scrn Negative ng/mL (N egative) 12/20/23 15:55 Urine Cocaine Scre en Negative ng/mL (N egative) 12/20/23 15:55 U Marijuana (THC) Screen Positive ng/mL (N egative) H 12/20/23 15:55 Ethyl Alcohol < 10 mg/dL (0-10) 12/20/23 16:19 Influenza Type A A g negative (Negati ve) 12/20/23 16:08 Influenza Type B A g negative (Negati ve) 12/20/23 16:08 RSV Antigen Negative (Negati ve) 12/20/23 16:08 SARS-CoV-2 Ag (Rap id) negative (Negati ve) 12/20/23 16:08 Vitals: Last Vital Signs Temp 98.6 F 12/26/23 06:00 Pulse 96 12/26/23 06:00 Resp 16 12/26/23 06:00 BP 130/74 12/26/23 06:00 Pulse Ox 97 12/26/23 06:00 O2 Del Method Room Air 12/25/23 14:00 Discharge Plan Discharge Patient Disposition: Home Condition: Stable Prescriptions: New aripiprazole 15 mg tablet 15 mg PO DAILY 13 Days Qty: 13 1RF escitalopram oxalate 10 mg Tablet 15 mg PO DAILY 30 Days Qty: 30 1RF trazodone 50 mg Tablet 50 mg PO BEDTIME PRN (Reason: Sleep) 30 Days Qty: 30 1RF sulfamethoxazole-trimethoprim 800-160 mg Tablet 1 tab PO 0900,2100 4 Days Qty: 8 0RF Abilify Maintena 400 mg suspension,extended rel recon 400 mg IM Q28D 28 Days Qty: 1 2RF Rx Instructions: next injection 01/23/24 Abilify Asimtufii 960 mg/3.2 mL suspension,extended rel syring 960 mg IM ONCE 56 Days Qty: 3.2 1RF Rx Instructions: next injection 02/20/24 No Action No Known Home Medications Discharge Orders: Discharge Order (Routine); Ordered 12/26/23 Ordered By: Tucker Baxter Referrals: [facility] [Other] - 01/09/24 2:00 pm [facility] [Outside] - 12/28/23 10:30 am (Initial assessment for services with Ms Car) Kajal Camarena FNP [Primary Care Provider] - Discharge Diet: Regular Discharge Activity: Resume usual activity Patient Instructions: Opioid Safety Discharge Attestations NPU Time Spent in Discharge Care*: less than 30 min Specific Discharge Activities: Specific discharge activities: educating patient, discussing with renal case manager/social workers/dc planners, documenting/other paperwork and evaluating patient/reviewing data Coding Level of Care Code Acute Code for [facility] Fwd Diagnoses Acute psychosis F23 Bipolar I disorder, recurrent manic episode F31.10 PTSD (post-traumatic stress disorder) F43.10 Suicidal ideation R45.851 Cira F30.9
[2023-12-26 12:55] VITALS: BP 130/74; PULSE 96; RESP 16; TEMP 37; O2SAT 97
== END 2023-12-26 13:44 | disposition home or self-care (01) | DRG 885 ==
LOC: ER 23:43 → NP 23:49
PROVIDERS: Family Medicine; Admitting Provider Psychiatry & Neurology Psychiatry; Emergency Provider Emergency Medicine; PCP Nurse Practitioner Family; Visit Provider Psychiatry & Neurology Psychiatry
DX: F23 Brief psychotic disorder (principal); R45.851 Suicidal ideations; F31.2 Bipolar disorder, current episode manic severe with psychotic features; F43.10 Post-traumatic stress disorder, unspecified; F41.9 Anxiety disorder, unspecified; F12.90 Cannabis use, unspecified, uncomplicated; Z72.0 Tobacco use; Z91.148 Patient's other noncompliance with medication regimen for other reason
CPT/HCPCS: 36415; 80053; 80306; 80307; 81001; 84703; 85025; 87077; 87086; 87186; 87426; 87804; 87899; 96372; 97150; 97165; 99285; Q0162

== ENCOUNTER 2025-01-31 20:54 | Inpatient (IN) | payer SELFPAY ==
[2025-01-31 20:55] VITALS: BMI 24.5
[2025-01-31 21:06] VITALS: BP 155/76; PULSE 102; RESP 18; TEMP 37.2; O2SAT 94
--- OUTSIDE RECORDS SUMMARY | 2025-01-31 21:15 | XMS_ITS | Clinical Summary ---
Author Organization [facility] Address [address] [place] [address] Phone Care Team Providers Care Visual Coordinator Name Role Phone Unavailable Primary Care Provider Unavailabl e Allergies No known active allergies Medications ibuprofen (MOTRIN) 800 mg tablet Take 800 mg by mouth every 6 hours as needed for Pain, Mild. Active Social History Tobacco Use Types Packs/Day Years Used Date Smoking Tobacco: Every Day Cigarettes Tobacco Cessation:Ready to Q uit: Not Asked; Counseling Given: Not Answered Alcohol Use Standard Drinks/Week Comments Not Currently 0 (1 standard drink = 0.6 oz pur e alcohol) Feeling Safe Answer Date Recorded Are you in a relationship wi th someone who hurts you emotionally and/or physically? 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 Gender Identity Not on file Sexual Orientation Not on file Last Filed Vital Signs Vital Sign Reading Time Taken Comments Blood Pressure 100/57 06/25/2023 1:31 PM COMMODITY LOAN CLERK Pulse 78 06/25/2023 1:31 PM COMMODITY LOAN CLERK Temperature 36.3 C (97.3 F) 06/25/2023 1:31 PM COMMODITY LOAN CLERK Respiratory Rate 14 06/25/2023 1:31 PM COMMODITY LOAN CLERK Oxygen Saturation 99% 06/25/2023 1:31 PM COMMODITY LOAN CLERK Inhaled Oxygen Concentration - - Weight 52.8 kg (116 lb 6.4 oz) 06/25/2023 11:00 AM COMMODITY LOAN CLERK Height 154.9 cm (5' 1 ) 06/25/2023 11:00 AM COMMODITY LOAN CLERK Body Mass Index 21.99 06/25/2023 11:00 AM COMMODITY LOAN CLERK Plan of Treatment Health Maintenance Due Date Last Done Comments HPV VACCINES (1 - 3-dose series) 1996 DTAP/TDAP/TD VACCINES (1 - Tdap) 2000 HEPATITIS B VACCINES (1 of 3 - 19+ 3-dose series) 08/11 HPV/Cotest (21-29) 2002 CERVICAL CANCER SCREENING 08/26/2011 HPV/Cotest (30-65) 08/26/2011 PAP SMEAR 08/26/2011 BREAST CANCER SCREENING 2021 INFLUENZA VACCINE (#1) 2025 Insurance [facility] PLAN [facility] [id number]
--- OUTSIDE RECORDS SUMMARY | 2025-01-31 21:15 | XMS_ITS | Encounter Summary ---
Author Organization [email or web address] Address 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
[2025-01-31 21:30] VITALS: BP 138/85; PULSE 95; O2SAT 92
--- NOTE | 2025-01-31 21:50 | ECG_ITS ---
[facility] Test Date: 2025-01-31 Pat Name: Elizabeth Laws Department: Room: 128 Gender: Female Security Services Specialist: : 1980 Requested By: He Smart Order Number: [id number] Rea MD: Ricardo Mai M.D. Measurements Intervals [place] Rate: 85 P: 67 SD: 149 QRS: 65 QRSD: 93 T: 53 QT: 362 QTc: 432 Interpretive Statements SINUS RHYTHM No previous ECG available for comparison Electronically Signed On 02-02-2025 09:40:05 CDT by Ricardo Mai M.D. [email or web address]
--- NOTE | 2025-01-31 21:50 | CTR_ITS ---
PROCEDURE INFORMATION: Exam: CT Head Without Contrast Exam date and time: 01/31/2025 10:00 PM Age: 44 years old Clinical indication: Altered mental status/memory loss; Additional info: AMS TECHNIQUE: Imaging protocol: Computed tomography of the head without contrast. Radiation optimization: All CT scans at this facility use at least one of these dose optimization techniques: automated exposure control; mA and/or kV adjustment per patient size (includes targeted exams where dose is matched to clinical indication); or iterative reconstruction. COMPARISON: No relevant prior studies available. RADIATION DOSE METRICS: Total DLP (mGy-cm): 1060.24 FINDINGS: Brain: No acute infarction, hemorrhage, mass, or extra-axial fluid collection is identified. No midline shift. Cerebral ventricles: No hydrocephalus. Paranasal sinuses: Mild ethmoid sinus disease. Mastoid air cells: Mastoid air cells are grossly clear. Bones: Calvarium appears intact. Soft tissues: Unremarkable. CT/CT head wo con* [id number] IMPRESSION: No acute intracranial abnormality.
--- NOTE | 2025-01-31 21:50 | XRR_ITS ---
PROCEDURE INFORMATION: Exam: XR Chest Exam date and time: 01/31/2025 10:26 PM Age: 44 years old Clinical indication: Other: Altered mental; Additional info: AMS TECHNIQUE: Imaging protocol: Radiologic exam of the chest. Views: 1 view. COMPARISON: No relevant prior studies available. FINDINGS: Lungs: Unremarkable. No consolidation. Pleural spaces: Unremarkable. No pleural effusion. No pneumothorax. Heart/Mediastinum: Unremarkable. No cardiomegaly. Bones/joints: Unremarkable. XR/XR chest 1V portable [id number] IMPRESSION: No acute findings.
[2025-01-31 22:00] VITALS: BP 104/82; PULSE 91; O2SAT 92
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
[2025-01-31 22:30] VITALS: BP 122/76; PULSE 88; O2SAT 94
[2025-01-31 22:55] LABS: Hematocrit 40.5 % (36-47); Hemoglobin 13.90 g/dL (11.27-16.99); Mean Corpuscular HGB Conc 34.3 g/dL (30-55); Mean Corpuscular Hemoglobin 32.6 pg (27-33); Mean Corpuscular Volume 95.1 fl (85-98); Nucleated Red Blood Cells % 0 %; Platelet Count 333 10^3/cmm (157-399); Red Blood Count 4.26 10^6/uL (3.85-5.65); White Blood Count 20.20 10^3/uL (3.29-11.43)
[2025-01-31 23:16] LABS: Alanine Aminotransferase 6 U/L (0-33); Albumin Level 3.8 g/dL (3.5-5.2); Alkaline Phosphatase 79 U/L (35-105); Anion Gap 15.5 (5-19); Aspartate Amino Transferase 14 U/L (0-32); Blood Urea Nitrogen 6 mg/dL (6-20); Calcium 8.3 mg/dL (8.5-10.5); Carbon Dioxide 22 mmol/L (22-29); Chloride 106 mmol/L (98-107); Creatinine Clr Calc Pharmacy 85.5039; Globulin 2.4 g/dL (1.3-4.6); Glucose 100 mg/dL (65-115); Osmolality Calculated 288 mOsm/kg (285-295); Potassium 3.5 mmol/L (3.5-5.1); Sodium 140 mmol/L (136-145); Total Protein 6.2 g/dL (6.6-8.7)
[2025-01-31 23:24] LABS: Acetaminophen < 5.0 ug/mL (10-30); Alcohol Level < 10 mg/dL (0-10); Salicylate < 0.3 mg/dL (3-10)
[2025-01-31 23:30] VITALS: BP 129/92; PULSE 81; O2SAT 91
[2025-01-31 23:37] LABS: Lactic Sepsis W/Reflex 0.9 mmol/L (0.5-2.2)
[2025-02-01] VITALS (7 sets, daily range): BP systolic 90–116; BP diastolic 57–78; PULSE 70–82; RESP 16–18; TEMP 36.7–37.1; O2SAT 92–98
[2025-02-01 00:03] LABS: Glucose Urine UA Negative (Normal); Nitrate Urine Negative (Negative); Specific Gravity, Urine 1.015 (1.005-1.030)
[2025-02-01 00:08] LABS: Add Urine Microscopic? YES
[2025-02-01 00:10] LABS: PCP Screen Urine Negative (Negative)
--- NOTE | 2025-02-01 06:23 | PC.NURSE ---
vs not completed per charge nurse, resp 19
--- NOTE | 2025-02-01 09:11 | P.NPUHP_ITS ---
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 stress disorder) F43.10 Suicidal ideation R45.851 Aleta F30.9
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
--- NOTE | 2025-02-01 14:56 | PC.OT ---
OT evaluation attempted 2x with pt self-isolating and sleeping. Will attempt again another time.
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
[2025-02-02 06:00] VITALS: BP 116/74; PULSE 85; RESP 17; TEMP 36.5; O2SAT 97
[2025-02-02 14:00] VITALS: BP 110/65; PULSE 66; RESP 16; TEMP 37.2; O2SAT 97
--- NOTE | 2025-02-02 17:19 | P.NPUPN_ITS ---
Subjective NPU 2 Subjective: Patient presented today reporting that she still struggling and seems to be confused still per staff reports and direct observation. She endorses that the medications being restarted have not been a problem and she is adjusting. She denied any side effects to her medication. Mental Status Exam 2 MSE Comments: This is a slender/well-nourished well-developed white female in hospital scrubs who had a disheveled appearance, but appropriate eye contact. There were no abnormal movements except for mild psychomotor retardation. Cooperative with exam in mild to moderate distress. Her speech was decreased rate and volume. Mood described as not good, affect slightly subdued, and labile/tearful. Her thought process was linear. Her thought content showed no evidence of active homicidal or suicidal ideation. There were no delusions reported or noted but she appeared confused about some things. She denied any auditory or visual hallucinations. Attention and concentration appeared limited and memory seemed unreliable but none were formally tested. She is alert and oriented x person and place. Her insight, judgment and impulse control are all impaired. Vitals/I&O/Wt Last Vital Signs Temp 99 F 02/02/25 14:00 Pulse 66 02/02/25 14:00 Resp 16 02/02/25 14:00 BP 110/65 02/02/25 14:00 Pulse Ox 97 02/02/25 14:00 O2 Del Method Room Air 02/02/25 14:00 Weight last 48 hrs Weight 58.967 kg Data NPU 01/31/25 22:45 01/31/25 22:45 A&P Assessment and plan 1. Acute psychosis: 2. Bipolar I disorder, recurrent manic episode: 3. PTSD (post-traumatic stress disorder): 4. Suicidal ideation: 5. Cira: Plan: This is a 43-year-old white female who presents with reports of confusion and being unable to really articulate what happened that led to her coming to the hospital likely consistent with past episodes of cira and psychosis. She reports discontinuing her medication and the possibility that that might have led to the situation that she can describe. 1. Encourage individual, group and milieu therapy. 2. Recommend sober living treatment at the highest level of care to which the patient is willing to commit. 3. Continue q-15 minute checks for safety.? 4. Restarted Lexapro 10 mg p.o. daily and Abilify 5 mg p.o. daily. Likely transition to Abilify injection which had been done previously. PDMP PDMP Reviewed: Not Reviewed Involuntary Hold Information 2 Hold Status: Date/Time Hold Expires: vol 96 Hour Hold: 96 Hour Involuntary Admission: Yes Attestations NPU 2 Medical Necessity Statement*: Inpatient hospitalization is medically necessary and the clinically appropriate intervention at this time.? We will monitor/initiate medications and make changes as indicated.? The patient?s likely length of stay 4-6 days. Coding Level of Care Code Acute Code for Chg Fwd Diagnoses Acute psychosis F23 Bipolar I disorder, recurrent manic episode F31.10 PTSD (post-traumatic stress disorder) F43.10 Suicidal ideation R45.851 Cira F30.9
[2025-02-02 19:59] VITALS: BP 113/63; PULSE 75; RESP 18; TEMP 37; O2SAT 99
[2025-02-03 06:00] VITALS: BP 117/74; PULSE 73; RESP 18; TEMP 36.9; O2SAT 98; BMI 26.2
[2025-02-03 14:00] VITALS: BP 125/84; PULSE 66; RESP 16; TEMP 36.6; O2SAT 94
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
[2025-02-03 20:03] VITALS: BP 125/72; PULSE 79; RESP 17; TEMP 37.2; O2SAT 94
[2025-02-04 06:00] VITALS: BP 123/75; PULSE 85; RESP 18; TEMP 36.7; O2SAT 96
[2025-02-04 14:00] VITALS: BP 125/83; PULSE 75; RESP 16; TEMP 37.5; O2SAT 96
--- NOTE | 2025-02-04 15:17 | P.NPUPN_ITS ---
Subjective NPU 2 Subjective: 44-year-old female admitted with bipolar disorder with a history of noncompliance with her recent psychiatric medications. The patient reports that she had no longer been on Medicaid and stopped taking her Abilify many months ago. She had reported that she was feeling better now back on her Abilify. She had stated that she would be agreeable to receiving a shot. She appeared less confused today. She had stated that she needed to go home and take care of her children. 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 She had reported that she had felt at times in the past like her thoughts were racing. She had denied any depression at this time. Patient was compliant on the milieu. She had required some prompting for completion of activities of daily living. Mental Status Exam 2 MSE Comments: This is a slender/well-nourished well-developed white female in hospital scrubs who had improved hygiene with fair eye contact today. There were no abnormal involuntary motor movements except for mild psychomotor retardation. She was cooperative with exam in mild distress. Her speech was decreased rate and normal in volume today. Mood described as better. Her affect was slightly subdued. Her thought process was linear. Her thought content showed no evidence of active homicidal or suicidal ideation. There was no evidence of delusional thinking. She did not appear to be responding to internal stimuli . Her attention and concentration appeared limited and memory seemed unreliable but none were formally tested. She is alert and oriented x person, place and time. Her insight was improving. Her judgment was limited. Her impulse control appeared improved. Vitals/I&O/Wt Last Vital Signs Temp 99.5 F 02/04/25 14:00 Pulse 75 02/04/25 14:00 Resp 16 02/04/25 14:00 BP 125/83 02/04/25 14:00 Pulse Ox 96 02/04/25 14:00 O2 Del Method Room Air 02/04/25 06:00 Weight last 48 hrs Weight 63.106 kg Data NPU 01/31/25 22:45 01/31/25 22:45 A&P Assessment and plan 1. Acute psychosis: 2. Bipolar I disorder, recurrent manic episode: 3. PTSD (post-traumatic stress disorder): 4. Suicidal ideation: 5. Cira: Plan: This is a 43-year-old white female who presents with reports of confusion and being unable to really articulate what happened that led to her coming to the hospital likely consistent with past episodes of cira and psychosis. She reports discontinuing her medication and the possibility that that might have led to the situation that she can describe. 1. Encourage individual, group and milieu therapy. 2. Recommend sober living treatment at the highest level of care to which the patient is willing to commit. 3. Continue q-15 minute checks for safety.? 4. Continue Lexapro 10 mg p.o. daily and continue Abilify 10mg daily. Abilify Maintena 400mg IM today. PDMP PDMP Reviewed: Not Reviewed Involuntary Hold Information 2 Hold Status: Date/Time Hold Expires: vol 96 Hour Hold: 96 Hour Involuntary Admission: Yes Attestations NPU 2 Medical Necessity Statement*: Inpatient hospitalization is medically necessary and the clinically appropriate intervention at this time.? We will monitor/initiate medications and make changes as indicated.? The patient?s likely length of stay 3-5 days. Coding Level of Care Code Acute Code for [facility] Fwd Diagnoses Acute psychosis F23 Bipolar I disorder, recurrent manic episode F31.10 PTSD (post-traumatic stress disorder) F43.10 Suicidal ideation R45.851 Cira F30.9
[2025-02-04] MEDS: ARIPiprazole Maintena 400 MG IM (15:58)
--- NOTE | 2025-02-04 15:59 | PC.NURSE ---
Pt given IM 400mg Abilify in right deltoid. Pt tolerated well.
[2025-02-04 19:59] VITALS: BP 120/80; PULSE 75; RESP 16; TEMP 36.7; O2SAT 95
[2025-02-05 04:34] VITALS: BP 146/93; PULSE 68; RESP 16; TEMP 36.6; O2SAT 98
--- NOTE | 2025-02-05 05:08 | PC.NURSE ---
pt resource request pt was tearful tonight about feeling 'overwhelmed in her head' this nurse spoke with pt about pastoral care, reaching out to a counselor while in the hospital and then when it was time for social work they would assist her with post discharge resources.
[2025-02-05 14:00] VITALS: BP 120/84; PULSE 81; RESP 16; TEMP 36.9; O2SAT 97
--- NOTE | 2025-02-05 18:53 | P.NPUPN_ITS ---
Subjective NPU 2 Subjective: 44-year-old female admitted with bipolar disorder with a history of noncompliance with her recent psychiatric medications. The patient had reported that she was feeling better with the Abilify. She had reported no hallucinations or paranoia at this time. She had reported that her thoughts were moving slower. She reported no side effects from the Abilify Maintena 400 mg given last night. She denied any depressed mood. She had reported motivation to remain on the Abilify currently. She had endorsed a past history of cira. She had completed some activities of daily living. She had been less isolative on the milieu. Mental Status Exam 2 MSE Comments: This is a well-nourished well-developed white female in hospital scrubs who had improved hygiene with fair eye contact today. There were no abnormal involuntary motor movements except for mild psychomotor retardation. She was cooperative with exam in no acute distress. Her speech was normal in rate and normal in volume today. Mood described as better. Her affect was slightly subdued. Her thought process was linear. Her thought content showed no evidence of active homicidal or suicidal ideation. There was no evidence of delusional thinking. She did not appear to be responding to internal stimuli . Her attention and concentration appeared limited and memory seemed unreliable but none were formally tested. She is alert and oriented x person, place and time. Her insight was improving. Her judgment was limited. Her impulse control appeared improved. Vitals/I&O/Wt Last Vital Signs Temp 98.4 F 02/05/25 14:00 Pulse 81 02/05/25 14:00 Resp 16 02/05/25 14:00 BP 120/84 02/05/25 14:00 Pulse Ox 97 02/05/25 14:00 O2 Del Method Room Air 02/05/25 14:00 Data NPU 01/31/25 22:45 01/31/25 22:45 A&P Assessment and plan 1. Acute psychosis: 2. Bipolar I disorder, recurrent manic episode: 3. PTSD (post-traumatic stress disorder): 4. Suicidal ideation: 5. Cira: Plan: This is a 43-year-old white female who presents with reports of confusion and being unable to really articulate what happened that led to her coming to the hospital likely consistent with past episodes of cira and psychosis. She reports discontinuing her medication and the possibility that that might have led to the situation that she can describe. 1. Encourage individual, group and milieu therapy. 2. Recommend sober living treatment at the highest level of care to which the patient is willing to commit. 3. Continue q-15 minute checks for safety.? 4. Continue Lexapro 10 mg p.o. daily and continue Abilify 10mg daily. Abilify Maintena 400mg IM given on 02/04/25. 5. Referral for [facility] services. PDMP PDMP Reviewed: Not Reviewed Involuntary Hold Information 2 Hold Status: Date/Time Hold Expires: vol 96 Hour Hold: 96 Hour Involuntary Admission: Yes Attestations NPU 2 Medical Necessity Statement*: Inpatient hospitalization is medically necessary and the clinically appropriate intervention at this time.? We will monitor/initiate medications and make changes as indicated.? The patient?s likely length of stay 1-2 days. Coding Level of Care Code Acute Code for g Fwd Diagnoses Acute psychosis F23 Bipolar I disorder, recurrent manic episode F31.10 PTSD (post-traumatic stress disorder) F43.10 Suicidal ideation R45.851 Cira F30.9
[2025-02-05 19:44] VITALS: BP 138/77; PULSE 77; RESP 16; TEMP 37; O2SAT 96
[2025-02-06 05:57] VITALS: BP 120/74; PULSE 70; RESP 16; TEMP 36.6; O2SAT 96
[2025-02-06 14:00] VITALS: BP 137/82; PULSE 65; RESP 16; TEMP 37.1; O2SAT 98
--- NOTE | 2025-02-06 15:36 | P.NPUDS_ITS ---
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 RDW 11.8 % (12.1-15.1 ) L 01/31/25 22:45 Plt Count 333 10^3/cmm (157 -399) 01/31/25 22:45 MPV 9.2 fL (7.4-10.4) 01/31/25 22:45 Gran % Cancelled 01/31/25: Neut % (Auto) 80.2 % 01/31/25 22:45 Lymph % (Auto) 14.1 % 01/31/25 22:45 [place] % (Auto) 5.0 % 01/31/25 22:45 Eos % (Auto) 0.1 % 01/31/25 22:45 Baso % (Auto) 0.2 % 01/31/25 22:45 Neut # (Auto) 16.18 10^3/uL (1. 8-7.7) H 01/31/25 22:45 Lymph # (Auto) 2.8 10^3/uL (0.8- 4.8) 01/31/25 22:45 [place] # (Auto) 1.0 10^3/uL (0.2- 0.9) H 01/31/25 22:45 Eos # (Auto) 0.0 10^3/uL (0.0- 0.8) 01/31/25 22:45 Baso # (Auto) 0.1 10^3/uL (0.0- 0.1) 01/31/25 22:45 Absolute Gran (aut o) Cancelled 01/31/25 21:25 Nucleated RBC % (a uto) 0 % 01/31/25 22:45 Nucleated RBCs # 0.0 /100WBC 01/31/25 22:45 Sodium 140 mmol/L (136-1 45) 01/31/25 22:45 Potassium 3.5 mmol/L (3.5-5 .1) 01/31/25 22:45 Chloride 106 mmol/L (98-10 7) 01/31/25 22:45 Carbon Dioxide 22 mmol/L (22-29) 01/31/25 22:45 Anion Gap 15.5 (5-19) 01/31/25 22:45 BUN 6 mg/dL (6-20) 01/31/25 22:45 Creatinine 0.7 mg/dL (0.5-0. 9) 01/31/25 22:45 GFR Calculation 91.3 mL/min (90-1 30) 01/31/25 22:45 Glucose 100 mg/dL (65-115 ) 01/31/25 22:45 Calculated Osmolal ity 288 mOsm/kg (285- 295) 01/31/25 22:45 Lactic Acid 0.9 mmol/L (0.5-2 .2) 01/31/25 22:45 Calcium 8.3 mg/dL (8.5-10 .5) L 01/31/25 22:45 Total Bilirubin 0.2 mg/dL (0.15-1 .2) 01/31/25 22:45 AST 14 U/L (0-32) 01/31/25 22:45 ALT 6 U/L (0-33) 01/31/25 22:45 Alkaline Phosphata se 79 U/L (35-105) 01/31/25 22:45 Total Protein 6.2 g/dL (6.6-8.7 ) L 01/31/25 22:45 Albumin 3.8 g/dL (3.5-5.2 ) 01/31/25 22:45 Globulin 2.4 g/dL (1.3-4.6 ) 01/31/25 22:45 Urine Color Yellow (Yellow) 01/31/25 23:36 Urine Appearance Clear (CLEAR) 01/31/25 23:36 Urine pH 5.5 (5-7) 01/31/25 23:36 Ur Specific Gravit y 1.015 (1.005-1.0 30) 01/31/25 23:36 Urine Protein 2+ (Negative) A 01/31/25 23:36 Urine Glucose (UA) Negative (Normal ) 01/31/25 23:36 Urine Ketones Trace (Negative) 01/31/25 23:36 Urine Blood 1+ (Negative) A 01/31/25 23:36 Urine Nitrate Negative (Negati ve) 01/31/25 23:36 Urine Bilirubin Negative (Negati ve) 01/31/25 23:36 Urine Urobilinogen 1.0 mg/dL (Negati ve) 01/31/25 23:36 Ur Leukocyte Mary [place] ase Negative (Negati ve) 01/31/25 23:36 Urine RBC 3-5 /hpf (0-2) 01/31/25 23:36 Urine WBC 0-5 /hpf (0-5) 01/31/25 23:36 Ur Squamous Epith Cells 6-10 /hpf (0-5) 01/31/25 23:36 Amorphous Sediment Not Reportable 01/31/25 23:36 Urine Bacteria None seen /hpf (N ONE) 01/31/25 23:36 Hyaline Casts 21.08 /lpf 01/31/25 23:36 Salicylates < 0.3 mg/dL (3-10 ) L 01/31/25 22:45 Urine Opiates Scre en Negative ng/mL (N egative) 01/31/25 23:36 Acetaminophen < 5.0 ug/mL (10-3 0) L 01/31/25 22:45 Ur Barbiturates Sc reen Negative ng/mL (N egative) 01/31/25 23:36 Ur Phencyclidine S crn Negative ng/mL (N egative) 01/31/25 23:36 Ur Amphetamines Sc reen Negative ng/mL (N egative) 01/31/25 23:36 U Benzodiazepines Scrn Negative ng/mL (N egative) 01/31/25 23:36 Urine Cocaine Scre en Negative ng/mL (N egative) 01/31/25 23:36 U Marijuana (THC) Screen Positive ng/mL (N egative) H 01/31/25 23:36 Ethyl Alcohol < 10 mg/dL (0-10) 01/31/25 22:45 Vitals: Last Vital Signs Temp 98.7 F 02/06/25 14:00 Pulse 65 02/06/25 14:00 Resp 16 02/06/25 14:00 BP 137/82 02/06/25 14:00 Pulse Ox 98 02/06/25 14:00 O2 Del Method Room Air 02/06/25 14:00 Discharge Plan Discharge Patient Disposition: Home Condition: Stable Prescriptions: New aripiprazole 15 mg tablet 15 mg PO DAILY 30 Days Qty: 30 1RF escitalopram oxalate 10 mg Tablet 10 mg PO DAILY 30 Days Qty: 30 1RF Abilify Maintena 400 mg suspension,extended rel recon 400 mg IM Q28D Qty: 1 1RF Rx Instructions: Due date 03/04/25, given at Crisis Center Discharge Order = DC NOW: Discharge Order (Routine); Ordered 02/06/25 Ordered By: Samuel Andrea Referrals: [facility] [Outside] - 02/07/25 7:30 am Referral Note: Initial assessment for services with Davida Purvis. Arrive at 7:30am for an 8am appointment. Kajal Camarena FNP [Primary Care Provider, Family Practice] Discharge Diet: Usual diet Discharge Activity: Resume usual activity Patient Instructions: Altered Mental Status (ED), Opioid Safety, Patient Portal & Bipin Instructions Discharge Attestations NPU Time Spent in Discharge Care*: less than 30 min Specific Discharge Activities: Specific discharge activities: educating patient, discussing with piano case maker/social workers/dc planners and documenting/other paperwork Coding Level of Care Code Acute Code for Chg Fwd Diagnoses Acute psychosis F23 Bipolar I disorder, recurrent manic episode F31.10 PTSD (post-traumatic stress disorder) F43.10 Suicidal ideation R45.851 [place] F30.9
[2025-02-06 15:39] VITALS: BP 137/82; PULSE 65; RESP 16; TEMP 37.1; O2SAT 98
== END 2025-02-06 16:13 | disposition home or self-care (01) | DRG 885 ==
LOC: ER 02-01 00:33 → NP 02-01 01:51
PROVIDERS: Admitting Provider Psychiatry & Neurology Psychiatry; Emergency Provider Physician Assistant; PCP Nurse Practitioner Family; Visit Provider Psychiatry & Neurology Psychiatry
DX: F31.89 Other bipolar disorder (principal); R45.851 Suicidal ideations; F43.10 Post-traumatic stress disorder, unspecified; F41.1 Generalized anxiety disorder; F17.210 Nicotine dependence, cigarettes, uncomplicated; T43.596A Underdosing of other antipsychotics and neuroleptics, initial encounter; Z91.128 Patient's intentional underdosing of medication regimen for other reason
CPT/HCPCS: 36415; 70450; 71045; 80053; 80306; 80307; 81001; 83605; 85025; 93005; 96372; 97150; 97165; 99285; J9999